=== PATIENT | male | born 1975 | race Caucasian/White ===

== ENCOUNTER → 2018-06-27 07:51 | Outpatient (CLI) | payer MEDICAID, SELFPAY | PROVIDERS: PCP Family Medicine; Visit Provider Orthopaedic Surgery | DX: S83.232A Complex tear of medial meniscus, current injury, left knee, initial encounter (principal); Z01.818 Encounter for other preprocedural examination ==

== ENCOUNTER 2018-07-07 08:05 | Emergency (ER) | payer MEDICAID, SELFPAY ==
[2018-07-07 08:10] VITALS: BP 151/95; PULSE 100; RESP 16; TEMP 36.7; O2SAT 99
--- NOTE | 2018-07-07 08:20 | DI.REPORT_ITS ---
SYMPTOM/DIAGNOSIS: POST OP PAIN AND SWELLING. LEFT KNEE: Comparison is made with 19 Mar 2018. There is anterior soft tissue swelling as well as a joint effusion. No foreign body is seen. An elongation of the inferior pole of the patella is again noted. IMPRESSION: Anterior soft tissue swelling and joint effusion.
--- NOTE | 2018-07-07 08:22 | ED.GENADUL_ITS ---
Disposition Clinical Impression: Left knee pain Disposition: HOME Condition: Good Instructions: Knee Pain (ED), RICE Therapy (ED) Additional Instructions: Please take Tylenol and Motrin as directed. Please do not take any Tylenol with your pain medication as this has some Tylenol in it. Please use ice multiple times throughout the day, please wrap it in an Stephen wrap as often as possible and follow-up at your scheduled appointment on July 15 at 11:40 AM. If you notice any worsening of your symptoms, or any new symptoms such as vomiting, diarrhea, fever, chills, shortness of breath, chest pain, numbness, weakness, or fainting , please return immediately to the emergency department for reevaluation. Please follow up with your primary care provider as soon as possible for reassessment and reevaluation. As always, it was a pleasure participating in your medical care today. Prescriptions: Acetaminophen [Tylenol Extra Strength] 1,000 mg PO Q6H 5 Days #60 tab Ibuprofen [Motrin Ib] 600 mg PO Q6H 5 Days #60 tablet Referrals: Ron Abbott MD [ [facility] STAFF PHYSICIAN] - Medical Decision Making - Medical Decision Making This is a pleasant 43-year-old male who presents for evaluation of left knee pain 4 days postoperatively. He had a meniscal trimming, performed by . Review of the postop note shows no significant complications with procedure. Patient tolerated it well. He has had swelling and pain since then, but no evidence of night sweats, fever, warmth. The patient has not been wrapping the knee, secondary to pain with wrapping, nor has he been taking any ibuprofen. He has taken his occasional opiate pain medication but has had some difficulty sleeping in spite of taking this. With no fever, redness, significant warmth, or other systemic signs of severe infection, I do feel that he is suffering from the normal postoperative swelling. No signs of a significant infectious etiology. We will get an x-ray to evaluate for any acute process, give Toradol, Tylenol, and encouraged close follow-up with his orthopedic surgeon. 9 AM X-ray shows no significant abnormality of the knee. There is notable soft tissue swelling but nothing else. Patient is feeling better after medications. We did contact the orthopedic office and he does have follow-up on July 15 at 11:40 AM. I feel that he can be safely discharged home with continued home NSAIDs, ice, and this close follow-up. We discussed red flags which to return including signs and symptoms of infection the patient understands. I have extensively reviewed the treatment plan and discharge instructions with the patient. I have addressed all patient concerns at this time. The patient was made aware of what symptoms to monitor for that would warrant a return to the emergency department. Discussed the plan with the patient, they demonstrate verbal understanding and agreement with our assessment and plan at this time. History of Present Illness - General Chief complaint: Orthopedic Stated complaint: KNEE PROBLEM Time Seen by Provider: 07/07/18 08:19 - History of Present Illness Initial comments: 33-year-old male with past medical history of questionable gout, previous left-sided femur fracture, lipoma, and recent surgery this past on his left knee for meniscal evaluation and potential trimming performed by Dr. Sahu. Review of records indicate that a posterior medial meniscectomy was performed, as well as a limited chondroplasty. No significant procedural complications. Patient states that since then he has had increased swelling and pain from the left knee. He denies any fevers, chills, redness. He does have notable pain with movement of the joint. He has been taking his occasional opiate anesthetic agent, with no significant improvement. He has not been taking any ibuprofen, he has not been icing it over the last 12 hours. Patient has continued to use his crutches. He does complaint of mild radiation of pain proximal to the knee with movement. He denies any other associated symptoms. Patient does admit to tobacco use. He denies any pertinent family history. He has no other complaints at this time. - Related Data Sumatriptan Succinate 100 mg PO BID #12 mg 03/03/13 Hydrocodone/Acetaminophen [Vicodin 5-300 mg Tablet] 1 each PO PRN 05/25/14 Magnesium Oxide [Magnesium] 500 mg PO DAILY NS 04/22/18 Topiramate [Topamax] 100 mg PO BID NS 04/22/18 Hydrocodone/Acetaminophen [[place] 5-325 Tablet] 1 each PO .Q4-6H PRN 07/04/18 Acetaminophen [Tylenol Extra Strength] 1,000 mg PO Q6H 5 Days #60 tab 07/07/18 Ibuprofen [Motrin Ib] 600 mg PO Q6H 5 Days #60 tablet 07/07/18 Allergies Allergy/AdvReac Type Severity Reaction Status Date / Time oxycodone [From Percocet] Allergy Intermediate Hives Unverified 07/07/18 08:26 Review of Systems Other: 10 point review of systems was performed, pertinent positives and negatives are noted in the history of present illness. General Exam - Other Other exam information: 1.Const: Well-nourished, Well-developed, appearing stated age 2.Eyes: PERRL, no conjunctival injection, and symmetrical lids. 3.ENT: Atraumatic external nose and ears. Moist MM. Neck: Symmetric, trachea midline, No thyromegaly. 4.CVS: +S1/S2, No murmurs or gallops. Peripheral pulses 2+ and equal in all extremities. Brisk capillary refill in all extremities. 5.RESP: Unlabored respiratory effort. Clear to auscultation bilaterally. Minimal wheeze, no rhonchi or rales. 6.GI: Soft, Nontender/Nondistended, No hepatosplenomegaly. No guarding or rebound. 7.MSK: Patient's left knee is mildly swollen, with minimal pitting edema. No evidence of erythema. Temperature is symmetric with the right knee. No significant warmth. Incision sites are clean dry and intact with no evidence of drainage or erythema. Patient is able to move the knee, but there is notable pain with movement. No significant crepitus. No calf tenderness, dorsalis pedis and posterior tibial pulses are +2 bilaterally with brisk capillary refill on the left and the right lower extremities. No significant tenderness on palpation of the proximal or distal thigh. 8.Skin: Warm, Dry. No rashes or lesions. Please see musculoskeletal 9.Neuro: supervisor slate splitting II-XII grossly intact. Sensation grossly intact, no focal neurologic deficits. 10.Psych: (AAO) x3. Appropriate mood and affect Course Vital Signs - 24 hr 07/07/18 08:10 Temperature 36.7 C Pulse 100 H Respiratory 16 Rate Blood Pressure 151/95 Pulse Oximetry 99
[2018-07-07] MEDS: Ketorolac 30 MG/ML VIAL IM (08:29)
[2018-07-07] MEDS: Acetaminophen 500 MG TAB 1000 MG PO (08:29)
[2018-07-07 09:15] VITALS: BP 132/92; PULSE 83; RESP 16; TEMP 36.8; O2SAT 98
== END 2018-07-07 09:23 | disposition home or self-care (01) ==
PROVIDERS: Emergency Provider Student in an Organized Health Care Education/Training Program; PCP Family Medicine
DX: M25.562 Pain in left knee (principal); G89.18 Other acute postprocedural pain; Y84.8 Other medical procedures as the cause of abnormal reaction of the patient, or of later complication, without mention of misadventure at the time of the procedure
CPT/HCPCS: 73562; 96372; 99284; J1885

== ENCOUNTER 2018-11-16 10:22 | Emergency (ER) | payer MEDICAID, SELFPAY ==
[2018-11-16 10:30] VITALS: BP 143/100; PULSE 76; RESP 17; TEMP 37.8; O2SAT 99
[2018-11-16] MEDS: Lidocaine 5% Patch 1 PATCH TP (10:49)
--- NOTE | 2018-11-16 10:54 | ED.GENADUL_ITS ---
Discharge Plan Disposition Patient Disposition: HOME Condition: Stable Discharge Details Chief Complaint: Nk/Back Pain Clinical Impression: Muscle strain of anterior chest wall, Muscle strain of right shoulder Primary Care Provider: Nelli Allen V ED Provider: Santiago Carmona Home Meds and New Rx's Prescriptions: New cyclobenzaprine 10 mg tablet 10 mg PO TID PRN (Reason: muscle spasm) Qty: 14 RF: 0 diclofenac potassium 50 mg tablet 50 mg PO TID PRN (Reason: pain) Qty: 14 RF: 0 No Action hydrocodone-acetaminophen [Vicodin] 1 EACH tablet 1 ea PO PRN RF: 0 Discharge Instructions Instructions: Muscle Strain (ED) Additional Instructions: Return to the emergency department for any new or significant worsening of symptoms otherwise take medication as prescribed and slowly advance activity as tolerated by pain. If not improving over the next week follow-up with primary care provider for reassessment Referrals: Nelli Allen MD [Primary Care Provider] - (as needed for reassessment) Discharge Data Discharge Date/Time-TO BE ENTERED AT DEPARTURE: 11/16/18 12:21 Medical Decision Making Patient reports approximately 1 weeks ago he was working on an automobile when trying to get a bolt to break free the breaker bar loosened causing a significant jarring to the right side of his chest and shoulder. He states since then he has had significant right-sided chest pain that worsens with movement of the arm, or lying on that side. Patient also does state pain with deep inspiration along with some subjective chills.. Physical exam shows chest wall/pectoral tenderness to the right side of the chest along with some tenderness to the posterior scapula. Breath sounds are clear throughout with some slight diminished breath sounds in the right lower lobe but still air movement is auscultated. Plan to perform radiological imaging of the right ribs and chest. Patient offered Toradol and lidocaine but declined Toradol at this time but was agreeable to receiving lidocaine patch Review of radiological imaging shows no acute findings within the lungs and no acute findings within the ribs. Patient was reassessed and stated minimal improvement from lidocaine continued to state he would prefer not to have Toradol at this time. Patient prescribed diclofenac and Flexeril for concern of muscle strain and chest wall strain and encouraged to return for new or worsening symptoms otherwise to follow-up with primary care provider as needed for reassessment. Patient was encouraged to slowly advance activity as tolerated by discomfort. After discussion of diagnosis and plan of care patient has no further needs, questions, or concerns and states clear understanding to return to the emergency department for any worsening symptoms. HPI General Mode of arrival: ambulatory . Date/Time Provider Initiated Documentation: 11/16/18 10:44 . Limitations to Documentation: no limitations . Information obtained by: patient and RN notes reviewed . History of Present Illness 43 year old M presents to the emergency department with the chief complaint of Right-sided pain, described as moderate, with intensity rated at 8. Quality is described as sharp, and is localized to the chest. Patient reports radiation to back. Patient started experiencing this day(s) (7) and it has been constant. No relieving factors improve symptom(s), Other factors that worsen symptoms (Deep breaths or lying on right side) . Patient notes no other symptoms.. Patient did receive the following treatments prior to arrival, none Related Data Home Medications Medication Instructions Recorded Confirmed hydrocodone-acetaminophen [Vicodin] 1 ea PO PRN 05/25/14 11/16/18 cyclobenzaprine 10 mg PO TID PRN #14 tab 11/16/18 diclofenac potassium 50 mg PO TID PRN #14 tab 11/16/18 Previous Rx's Medication Instructions Recorded cyclobenzaprine 10 mg PO TID PRN #14 tab 11/16/18 diclofenac potassium 50 mg PO TID PRN #14 tab 11/16/18 Allergies Allergy/AdvReac Type Severity Reaction Status Date / Time oxycodone [From Percocet] Allergy Intermediate Hives Unverified 07/07/18 08:26 General Stated Complaint: Nk/Back Pain VANDANA: 4 Review of Systems Constitutional Reports chills, Denies fever(s) and Denies malaise ENT Denies nasal congestion and Denies sore throat Cardiovascular Reports as per HPI, Reports chest pain (Right-sided), Reports chest pain with activity, Denies irregular heart rhythm, Denies palpitations and Denies dyspnea Respiratory Denies chest congestion, Denies cough, Reports pain on inspiration and Denies dyspnea Gastrointestinal Denies abdominal pain, Denies nausea and Denies vomiting Endocrine Denies palpitations PFSH Social History Smoking/Tobacco Use Status: Current every day Exam Const General: cooperative, healthy appearing, comfortable, no acute distress, not diaphoretic and not ill appearing Nutritional Appearance: average body habitus Orientation: alert, awake and oriented x3 Limitations: mental status not altered Neck Neck: normal visual inspection, full ROM, trachea midline, supple and no anterior neck swelling Thyroid: thyroid normal Carotids: normal carotid upstroke and no bruits Chest Chest: normal inspection of the chest, tenderness pectoral muscle on the right; no sternal xxx and No rash Resp Effort & Inspection: normal respiratory effort and able to speak in complete sentences Auscultation: clear to auscultation bilaterally and diminished lung sounds on the right in the lower lung james Cardio Jugular venous pressure: no JVD Palpation: normal PMI Rate: regular rate Rhythm: regular rhythm Heart Sounds: S1 normal, S2 normal, no click, no gallops, no murmurs and no rubs Bruits: no abdominal aortic bruits and no carotid bruits Pulses: radial pulses present bilaterally 2+ Skin General skin exam: no rashes or lesions noted Neuro General: alert, awake, oriented x3, tone normal and moves all extremities Extrem Right upper extremity: normal capillary refill, no joint enlargement, shoulder/upper arm Details: tenderness Location: of the proximal humerus and of the scapula, axillary nerve sensory function normal and abnormal ROM Details: pain with active ROM Details: in ADduction and in extension; no ecchymosis, no crepitus and no deformity and elbow/forearm Details: normal to inspection and normal ROM; no tenderness and no swelling Course Vital Signs Temperature 37.8 C H 11/16/18 10:30 Pulse 76 11/16/18 10:30 Respiratory Rate 17 11/16/18 10:30 Blood Pressure 143/100 H 11/16/18 10:30 Pulse Oximetry 99 11/16/18 10:30 Temperature 37.8 C H 11/16/18 10:30 Temperature Source Skin 11/16/18 10:30 Pulse 76 11/16/18 10:30 Respiratory Rate 17 11/16/18 10:30 Respiratory Effort Non-Labored 11/16/18 10:51 Blood Pressure 143/100 H 11/16/18 10:30 Pulse Oximetry 99 11/16/18 10:30 Oxygen Delivery Method Room Air 11/16/18 10:30 Oxygen Flow Rate 0 11/16/18 10:30 Pain Level 8 11/16/18 10:30
--- NOTE | 2018-11-16 11:06 | DI.RAD_ITS ---
SYMPTOM/DIAGNOSIS: RT SIDED CHEST PAIN RIGHT RIBS AND PA AND LATERAL CHEST: The heart size is normal. The lungs are clear. No pneumothorax is seen. No rib fracture is identified. The spine appears intact. IMPRESSION: Negative chest and right ribs.
--- NOTE | 2018-11-16 11:22 | DI.VRAD_ITS ---
EXAM: XR Right Ribs, 2 Views EXAM DATE/TIME: 11/16/2018 10:45 AM CLINICAL HISTORY: 43 years old, male; Pain; Other: Rib pain; Painful respiration; Patient HX: Right sided chest pain TECHNIQUE: XR Right ribs 2 views. COMPARISON: CR RIGHT RIBS TO INCLUDE CXR 06/10/2012 11:05 AM FINDINGS: Bones/joints: Normal. Soft tissues: Normal. IMPRESSION: No acute findings. EXAM: XR Chest, 2 Views EXAM DATE/TIME: 11/16/2018 10:45 AM CLINICAL HISTORY: 43 years old, male; Pain; Other: Rib pain; Painful respiration; Patient HX: Right sided chest pain TECHNIQUE: XR of the chest, 2 views. COMPARISON: CR RIGHT RIBS TO INCLUDE CXR 06/10/2012 11:05 AM FINDINGS: Lungs: Moderately hyperaerated lungs consistent with deep inspiratory effort vs significant reactive airway disease vs moderate COPD . Pleural space: Unremarkable. No pleural effusion. No pneumothorax. Heart/Mediastinum: Unremarkable. No cardiomegaly. Bones/joints: Unremarkable. IMPRESSION: Moderately hyperaerated lungs consistent with deep inspiratory effort vs significant reactive airway disease vs moderate COPD . Dictated and Authenticated by: Bert Menon MD. Ordering:KIRTI Henderson MD
[2018-11-16 12:19] VITALS: BP 137/98; PULSE 74; RESP 14; TEMP 37; O2SAT 98
== END 2018-11-16 12:21 | disposition home or self-care (01) ==
PROVIDERS: Emergency Provider Nurse Practitioner Family; PCP Family Medicine
DX: S29.011A Strain of muscle and tendon of front wall of thorax, initial encounter (principal); S46.911A Strain of unspecified muscle, fascia and tendon at shoulder and upper arm level, right arm, initial encounter; W22.8XXA Striking against or struck by other objects, initial encounter
CPT/HCPCS: 99284; 71046; 71100

== ENCOUNTER 2018-12-12 10:35 | Outpatient (REF) | payer MEDICAID, SELFPAY ==
[2018-12-17 14:53] LABS: Codeine Negative ng/mL (Cutoff: 25); Dihydrocodeine Negative ng/mL (Cutoff: 25); Hydrocodone Negative ng/mL (Cutoff: 25); Hydromorphone Negative ng/mL (Cutoff: 25); Morphine Negative ng/mL (Cutoff: 25); Naloxone Negative ng/mL (Cutoff: 25); Norhydrocodone 89 ng/mL (Cutoff: 25); Noroxycodone Negative ng/mL (Cutoff: 25); Noroxymorphone Negative ng/mL (Cutoff: 25); Opiates Interpretation Positive.
== END 2018-12-12 10:55 ==
LOC: NCHCN 10:35
PROVIDERS: PCP Family Medicine; Visit Provider Family Medicine
DX: F11.20 Opioid dependence, uncomplicated (principal); Z51.81 Encounter for therapeutic drug level monitoring
CPT/HCPCS: 80053; 80361; 85027; 86704; 86709; 86803; 87340; 84443; 86140

== ENCOUNTER 2019-02-27 11:14 | Outpatient (REF) | payer MEDICAID, SELFPAY ==
[2019-02-27 21:09] LABS: Anion Gap 8.8 mmol/L (3-11); BUN 16 mg/dL (7-18); CO2 26.2 mmol/L (21.0-32.0); CREATININE 0.85 mg/dL (0.70-1.30); Calcium 9.2 mg/dL (8.5-10.1); Chloride 103 mmol/L (98-107); Glucose 99 mg/dL (70-100); Magnesium 1.9 mg/dL (1.8-2.4); Potassium 4.5 mmol/L (3.5-5.1); Sodium 138 mmol/L (136-145); TSH (W/Ref FT4) 1.05 uIU/mL (0.358-3.74); Vitamin B12 693 pg/mL (193-986)
== END 2019-02-27 11:34 ==
LOC: NCHCN 11:14
PROVIDERS: PCP Family Medicine; Visit Provider Family Medicine
DX: R20.2 Paresthesia of skin (principal)
CPT/HCPCS: 80048; 82607; 83735; 84443

== ENCOUNTER 2019-05-06 07:21 | Emergency (ER) | payer MEDICAID, SELFPAY ==
--- NOTE | 2019-05-06 07:27 | NUR.NOTE ---
Nursing Note: pt states that 2 days ago her was splitting firewood the next morning he awoke with significant upper back pain as well as sternal pain
[2019-05-06 07:28] VITALS: BP 158/99; PULSE 89; RESP 15; TEMP 37.1; O2SAT 98
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
--- NOTE | 2019-05-06 07:34 | DI.RAD_ITS ---
SYMPTOM/DIAGNOSIS: CHEST AND UPPER BACK PAIN PA AND LATERAL CHEST: The heart is normal in size. The lungs are clear. The mediastinal structures and pleura appear intact. CONCLUSION: Normal chest. No evidence of acute cardiopulmonary disease.
[2019-05-06] MEDS: Aspirin 81 MG CHEW 324 MG CH (07:35)
[2019-05-06 07:42] LABS: Abs Immature Grans 0.02 k/cumm (0.0-0.09); Absolute Basophil Count 0.03 k/cumm (0.0-0.2); Absolute Eosinophil Count 0.35 k/cumm (0.0-0.7); Absolute Lymphocyte Count 2.96 k/cumm (1.2-3.4); Absolute Monocyte Count 0.77 k/cumm (0.11-0.7); Absolute Neutrophil Count 6.32 k/cumm (1.2-6.7); Basophils % 0.3; Eosinophils % 3.3; HCT 48.5 % (40.0-50.0); Immature Grans % 0.2; Lymphocytes % 28.3; Mean Corp. HGB Concentration 35.1 g/dL (32.0-36.0); Mean Corpuscular Hemoglobin 30.8 pg (27.0-33.0); Mean Corpuscular Volume 87.9 fL (80-95); Mean Platelet Volume 9.6 fL (8.0-11.0); Monocytes % 7.4; Neutrophils % 60.5; Platelet Count 274 x1000/uL (130-400); RBC 5.52 m/cumm (4.50-6.00); RBC Distribution Width 12.9 % (11.8-14.1); White Blood Cell Count 10.45 k/cumm (4.4-10.8)
[2019-05-06 07:56] LABS: PTT Activated 25.7 sec (21.0-31.4)
--- NOTE | 2019-05-06 08:00 | DI.VRAD_ITS ---
EXAM: XR Chest, 2 Views EXAM DATE/TIME: 05/06/2019 7:35 AM CLINICAL HISTORY: 44 years old, male; Pain and injury or trauma; Injury history: Pulling injury; Initial encounter; Sprain or strain; Chest wall pain TECHNIQUE: Imaging protocol: XR of the chest, 2 views. COMPARISON: CR XR ribs RT w PA lat chest 11/16/2018 10:56 AM FINDINGS: Lungs: Unremarkable. No consolidation. Pleural space: Unremarkable. No evidence of pneumothorax. Heart/Mediastinum: Unremarkable. Heart size within normal limits for technique. Bones/joints: Unremarkable. IMPRESSION: No acute findings. Dictated and Authenticated by: Andreas Martínez MD. Ordering:BETHANY Noel MD
[2019-05-06 08:01] LABS: ALT 25 U/L (12-78); AST 16 U/L (15-37); Alkaline Phosphatase 100 U/L (46-116); Anion Gap 9.7 mmol/L (3-11); BUN 8 mg/dL (7-18); Bilirubin, Total 0.4 mg/dL (0.2-1.0); CO2 26.3 mmol/L (21.0-32.0); CREATININE 0.85 mg/dL (0.70-1.30); Calcium 9.3 mg/dL (8.5-10.1); Chloride 104 mmol/L (98-107); Glucose 126 mg/dL (70-100); Magnesium 1.8 mg/dL (1.8-2.4); Potassium 4.3 mmol/L (3.5-5.1); Sodium 140 mmol/L (136-145); Total Protein 7.4 g/dL (6.4-8.2)
[2019-05-06 08:03] LABS: Troponin I < 0.02 ng/mL (0.00-0.06)
[2019-05-06 08:11] LABS: D-Dimer 485 ng/mlFEU (<500)
[2019-05-06] MEDS: Lidocaine 5% Patch 1 PATCH (08:45)
[2019-05-06 09:27] VITALS: BP 158/99; PULSE 89; RESP 15; TEMP 37.1; O2SAT 98
== END 2019-05-06 09:26 | disposition home or self-care (01) ==
PROVIDERS: Emergency Medicine; Emergency Provider Physician Assistant; PCP Family Medicine
DX: M54.6 Pain in thoracic spine (principal); G89.29 Other chronic pain; S29.011A Strain of muscle and tendon of front wall of thorax, initial encounter; W50.3XXA Accidental bite by another person, initial encounter
CPT/HCPCS: 36415; 80053; 93005; 99284; 71046; 83735; 84484; 85025; 85379; 85610; 85730; 93010; J3490

== ENCOUNTER 2019-05-20 09:39 | Outpatient (CLI) | payer MEDICAID, SELFPAY ==
--- NOTE | 2019-05-20 11:30 | DI.RAD_ITS ---
SYMPTOMS/DIAGNOSIS: PARESTHESIA HANDS, R20.2, PARASPINAL LT BACK PAIN, M54.9 CERVICAL SPINE: The vertebral bodies are intact. There is subtle narrowing of the C 6 - 7 disc interspace. The neural canal and neural foramen are widely patent. The posterior elements appear intact. The odontoid is intact and is closely applied to the anterior arch of C 1. The prevertebral soft tissues appear normal. SUMMARY: The examination is unremarkable as for mild narrowing of the C 6 - 7 disc interspace. THORACIC SPINE: The vertebral bodies and disc spaces are intact. The posterior elements are well maintained. The paravertebral soft tissues appear unremarkable. SUMMARY: Normal thoracic spine.
== END 2019-05-20 09:59 ==
PROVIDERS: PCP Family Medicine; Visit Provider Family Medicine
DX: R20.2 Paresthesia of skin (principal); M54.2 Cervicalgia; M54.6 Pain in thoracic spine; M50.323 Other cervical disc degeneration at C6-C7 level
CPT/HCPCS: 72050; 72072

== ENCOUNTER 2021-05-23 16:27 | Outpatient (REF) | payer MEDICAID, SELFPAY ==
[2021-05-28 14:25] LABS: Codeine Negative ng/mL (Cutoff: 25); Dihydrocodeine Negative ng/mL (Cutoff: 25); Hydrocodone 177 ng/mL (Cutoff: 25); Hydromorphone 27 ng/mL (Cutoff: 25); Morphine Negative ng/mL (Cutoff: 25); Naloxone Negative ng/mL (Cutoff: 25); Norhydrocodone 166 ng/mL (Cutoff: 25); Noroxycodone Negative ng/mL (Cutoff: 25); Noroxymorphone Negative ng/mL (Cutoff: 25); Opiates Interpretation Positive.
[2021-06-02 13:00] LABS: Acetaminophen, Urine 8.8 ug/ml
== END 2021-05-23 16:28 | disposition home or self-care (01) ==
LOC: NCHCN 16:27
PROVIDERS: PCP Family Medicine; Visit Provider Family Medicine
DX: Z51.81 Encounter for therapeutic drug level monitoring (principal)
CPT/HCPCS: 80307; 80361; 80362; 80365

== ENCOUNTER 2021-06-05 10:41 | Inpatient (IN) | payer MEDICAID, SELFPAY ==
[2021-06-05] VITALS (16 sets, daily range): BP systolic 116–144; BP diastolic 75–88; PULSE 80–107; RESP 14–20; TEMP 36.4–37.2; O2SAT 96–99
--- NOTE | 2021-06-05 11:06 | DI.CT_ITS ---
Exam(s) CT ABDOMEN PELVIS W EXAM: CT ABDOMEN PELVIS W CLINICAL HISTORY: RLQ pain. TECHNIQUE: Imaging Protocol: Axial computed tomography images with coronal and sagittal reformatted images were created and reviewed CONTRAST MATERIAL: Intravenous: Omnipaque 100cc Oral: None COMPARISON: No exams were available for comparison FINDINGS: VISUALIZED LUNG BASES: No nodules nor pleural effusions evident. ABDOMEN: There is no ascites. LIVER: There are no focal hepatic lesions evident. Fluid is seen in the right paracolic gutter subja cent to the liver. GALLBLADDER/BILIARY: No obvious gallbladder pathology. CBD is not dilated. PANCREAS: No evidence of pancreatic mass nor dilatation of the pancreatic duct. SPLEEN: Spleen is not enlarged. No obvious intrasplenic lesions. Splenic and portal veins are paten t. ADRENALS: There are no significant adrenal masses. KIDNEYS:No cysts evident. No solid renal masses. No calculi nor hydronephrosis.. ABDOMINAL AORTA: Abdominal aorta is not enlarged. LYMPH NODES:There is no retroperitineal nor paraaortic adenopathy. ABDOMINAL WALL: No evidence of significant anterior abdominal wall hernia. GI: There is significant abnormality in the right iliac fossa with free fluid in this area and diffic ult to delineate the ileocecal valve. Findings are suspicious for appendicitis with rupture. PELVIS: GI: As above.No evidence of sigmoid diverticulitis. LYMPH NODES: There is no intrapelvic nor inguinal adenopathy. REPRODUCTIVE: Prostate size normal URINARY BLADDER: No calculi nor obvious masses evident OSSEOUS: There is inter previous probable intramedullary lonny in the left femur. No significant osseo us lesions evident. IMPRESSION: 1. Findings are suspicious for acute appendicitis with rupture. High risk for developing an abscess. RADIATION DOSE DELIVERED: 567.17mGy.cm Total DLP DATA REPOSITORY: All CT scans at this facility are submitted to the National Radiology Data Registry (NRDR) Dose Index Registry (DIR) with the [employer] ([employer]). RADIATION OPTIMIZATION: All CT scans at this facility use at least one of these dose optimization te chniques: automated exposure control; mA and/or kV adjustment per patient size (includes targeted exa ms where dose is matched to clinical indication); or iterative reconstruction.
[2021-06-05] MEDS: Normal Saline 1,000 ML 1000 ML IV ×2 (11:21→12:15)
[2021-06-05 11:29] LABS: Abs Immature Grans 0.06 10^3/uL (0.0-0.06); Absolute Basophil Count 0.09 10^3/uL (0.0-0.2); Absolute Eosinophil Count 0.04 10^3/uL (0.0-0.7); Absolute Monocyte Count 1.53 10^3/uL (0.1-0.8); Absolute Neutrophil Count 14.11 10^3/uL (1.2-6.7); Basophils % 0.5; Eosinophils % 0.2; HCT 46.3 % (40.0-50.0); Immature Grans % 0.3; Lymphocytes % 13.1; MCH 30.3 pg (27.0-33.0); MCHC 34.6 % (32.0-36.0); MCV 87.7 fL (80-95); MPV 9.1 fL (8.0-11.0); Monocytes % 8.4; Neutrophils % 77.5; Nucleated RBC 0 %; Platelet Count 255 10^3/uL (130-400); RBC 5.28 10^6/uL (4.36-5.78); RDW 12.4 % (11.8-14.1); RDW-SD 40.1 fL; WBC 18.21 10^3/uL (4.4-10.8)
[2021-06-05 11:32] LABS: Absolute Lymphocyte Count 2.39 10^3/uL (1.2-3.4)
[2021-06-05 11:43] LABS: ALT 20 U/L (16-63); AST 10 U/L (15-37); Albumin 3.8 g/dL (3.4-5.0); Alkaline Phosphatase 107 U/L (46-116); Anion Gap 10.3 mmol/L (3-11); BUN 15 mg/dL (7-18); Bilirubin, Total 0.8 mg/dL (0.2-1.0); CO2 24.7 mmol/L (21.0-32.0); CREATININE 0.9 mg/dL (0.70-1.30); Calcium 9.1 mg/dL (8.5-10.1); Chloride 101 mmol/L (98-107); Glucose 114 mg/dL (74-106); Lipase 19 U/L (73-393); Potassium 3.9 mmol/L (3.5-5.1); Sodium 136 mmol/L (136-145); Total Protein 7.4 g/dL (6.4-8.2)
[2021-06-05] MEDS: Omnipaque 350 MG/ML 100 ML BTL IJ (11:48)
[2021-06-05 11:49] LABS: Diff Comment Diff Reviewed; RBC Morphology Normal
[2021-06-05] MEDS: Normal Saline Flush 10 ML SYR IVP ×2 (11:49→15:07)
[2021-06-05] MEDS: Normal Saline - Diluent 50 ML VIAL IV (11:49)
[2021-06-05] MEDS: HYDROmorphone 2 MG/ML VIAL 1 MG IVP (12:15)
--- NOTE | 2021-06-05 12:28 | W.ED.GENAD ---
Discharge Plan Discharge Details Chief Complaint: Abd Prob Admit Date/Time: 06/05/21 13:26 Admit Provider: Dana Jurado Attending Provider: Dana Jurado Primary Care Provider: Nelli Allen V ED Provider: Radha Maguire Medical Decision Making Silvano Juarez is a 46-year-old man without reported history of major medical problems who presented to the emergency department with right lower quadrant pain since yesterday morning. On exam patient appears uncomfortable but nontoxic. There is focal tenderness to palpation in the right lower quadrant with peritoneal signs. Concern for appendicitis, diverticulitis, other. Exam/history at this time is not consistent with sepsis, mesenteric ischemia, acute aortic pathology, acute coronary syndrome. Plan for IV placement, IV pain medication, screening labs, UA, CT abdomen/pelvis. Will monitor and reassess. Labs reviewed, leukocytosis of [address] abdomen/pelvis shows significant abnormality in the right lower quadrant, consistent with likely ruptured appendix. Plan for Zosyn. I contacted surgery, who will be down to see patient bedside. Patient to be admitted to Dr. Jurado of surgery. Medical Records Medical records reviewed: Yes I reviewed the patient's medical records. Imaging Data Radiologic Study: Attestation: I personally reviewed and interpreted this imaging study as follows: Radiologist's impression: EXAM: CT ABDOMEN PELVIS W CLINICAL HISTORY: RLQ pain. TECHNIQUE: Imaging Protocol: Axial computed tomography images with coronal and sagittal reformatted images were created and reviewed CONTRAST MATERIAL: Intravenous: Omnipaque 100cc Oral: None COMPARISON: No exams were available for comparison FINDINGS: VISUALIZED LUNG BASES: No nodules nor pleural effusions evident. ABDOMEN: There is no ascites. LIVER: There are no focal hepatic lesions evident. Fluid is seen in the right paracolic gutter subjacent to the liver. GALLBLADDER/BILIARY: No obvious gallbladder pathology. CBD is not dilated. PANCREAS: No evidence of pancreatic mass nor dilatation of the pancreatic duct. SPLEEN: Spleen is not enlarged. No obvious intrasplenic lesions. Splenic and portal veins are patent. ADRENALS: There are no significant adrenal masses. KIDNEYS:No cysts evident. No solid renal masses. No calculi nor hydronephrosis.. ABDOMINAL AORTA: Abdominal aorta is not enlarged. LYMPH NODES:There is no retroperitineal nor paraaortic adenopathy. ABDOMINAL WALL: No evidence of significant anterior abdominal wall hernia. GI: There is significant abnormality in the right iliac fossa with free fluid in this area and difficult to delineate the ileocecal valve. Findings are suspicious for appendicitis with rupture. PELVIS: GI: As above.No evidence of sigmoid diverticulitis. LYMPH NODES: There is no intrapelvic nor inguinal adenopathy. REPRODUCTIVE: Prostate size normal URINARY BLADDER: No calculi nor obvious masses evident OSSEOUS: There is inter previous probable intramedullary lonny in the left femur. No significant osseous lesions evident. IMPRESSION: 1. Findings are suspicious for acute appendicitis with rupture. High risk for developing an abscess. Lab Data Lab results reviewed: Yes I reviewed the patient's lab results. Labs: Laboratory Tests Range/Units 06/05/21 06/05/21 06/05/21 11:15 11:15 12:35 WBC (4.4-10.8) 10^3/uL 18.21 H RBC (4.36-5.78) 10^6/uL 5.28 Hgb (13.5-17.5) g/dL 16.0 Hct (40.0-50.0) % 46.3 MCV (80-95) fL 87.7 MCH (27.0-33.0) pg 30.3 MCHC (32.0-36.0) % 34.6 RDW (11.8-14.1) % 12.4 Plt Count (130-400) 10^3/uL 255 MPV (8.0-11.0) fL 9.1 Immature Gran % 0.3 Neutrophils % 77.5 Lymphocytes % 13.1 Monocytes % 8.4 Eosinophils % 0.2 Basophils % 0.5 Nucleated RBC % % 0 Absolute Neutrophils (1.2-6.7) 10^3/uL 14.11 H Absolute Lymphocytes (1.2-3.4) 10^3/uL 2.39 Absolute Monocytes (0.1-0.8) 10^3/uL 1.53 H Absolute Eosinophils (0.0-0.7) 10^3/uL 0.04 Absolute Basophils (0.0-0.2) 10^3/uL 0.09 RBC Morphology Normal Sodium (136-145) mmol/L 136 Potassium (3.5-5.1) mmol/L 3.9 Chloride (98-107) mmol/L 101 Carbon Dioxide (21.0-32.0) mmol/L 24.7 Anion Gap (3-11) mmol/L 10.3 BUN (7-18) mg/dL 15 Creatinine (0.70-1.30) mg/dL 0.9 Estimated GFR/1.73 m2 (mL/min/1.73m2) >= 60.00 Glucose (74-106) mg/dL 114 H Calcium (8.5-10.1) mg/dL 9.1 Total Bilirubin (0.2-1.0) mg/dL 0.8 AST (15-37) U/L 10 L ALT (16-63) U/L 20 Alkaline Phosphatase (46-116) U/L 107 Total Protein (6.4-8.2) g/dL 7.4 Albumin (3.4-5.0) g/dL 3.8 Lipase (73-393) U/L 19 Urine Color (Yellow) Yellow Urine Clarity (Clear) Clear Urine pH (5-8) 7.0 Ur Specific [place] (1.005-1.025) 1.010 Urine Protein (Negative) mg/dL Negative Urine Ketones (Negative) mg/dL Negative Urine Blood (Negative) Trace-intact H Urine Nitrite (Negative) Negative Urine Bilirubin (Negative) Negative Urine Urobilinogen (Up TO 0.2) EU/dL 1.0 H Ur Leukocyte Esterase (Negative) Negative Urine RBC (0-2) HPF 0-2 Urine WBC (0-5) HPF Negative Ur Epithelial Cells (Negative) HPF Negative Urine Crystals (Negative) HPF Negative Urine Bacteria (Negative) HPF Negative Urine Casts (Negative) LPF Negative Urine Mucus (Negative) Negative Ur Culture Indicated? No Urine Glucose (Negative) mg/dL Negative HPI General Mode of arrival: ambulatory. Date/Time Provider Initiated Documentation: 06/05/21 10:45. Limitations to Documentation: no limitations. Information obtained by: patient, RN notes reviewed and old records reviewed. HPI Narrative: Silvano Juarez is a 46 y/o man without reported major medical problems presenting to the emergency department with right lower quadrant pain since yesterday morning. Patient reports that yesterday morning he woke up with pain in his right lower quadrant. He states that later in the day he developed nonbloody vomiting, nonbloody diarrhea. Patient reports that he has had no further diarrhea or vomiting today, but right lower quadrant pain has continued to become more severe. He reports that he has not eaten anything since onset of pain yesterday morning. He denies any history of similar pain. No abdominal surgery in the past. Patient reports that prior to onset of pain yesterday morning he was in his usual state of health, no prior symptoms, no known inciting event, no trauma. He denies any other pain including testicular pain, fever, cough, shortness of breath, numbness, weakness, rash, dysuria. Related Data Home Medications Medication Instructions Recorded Confirmed hydrocodone-acetaminophen [Vicodin] 1 ea PO PRN 05/25/14 06/05/21 lidocaine [Lidoderm] 1 patch TP DAILY PRN #15 each 05/06/19 06/05/21 methocarbamol 750 mg PO QID PRN #10 tab 05/06/19 06/05/21 indomethacin 50 mg capsule 50 mg PO TID 01/25/20 06/05/21 Previous Rx's Medication Instructions Recorded lidocaine [Lidoderm] 1 patch TP DAILY PRN #15 each 05/06/19 methocarbamol 750 mg PO QID PRN #10 tab 05/06/19 Allergies Allergy/AdvReac Type Severity Reaction Status Date / Time oxycodone [From Percocet] Allergy Intermediate Hives Unverified 06/05/21 10:52 gabapentin [From Neurontin] Allergy Mild Verified 06/05/21 10:52 General Stated Complaint: Abd Prob VANDANA: 3 Review of Systems Narrative: Constitutional: denies fevers Eyes: denies eye pain ENT: denies ear pain, dental pain, sore throat Cardiovascular: denies chest pain Respiratory: denies SOB, cough GI: Reports abdominal pain, vomiting, diarrhea : denies flank pain, dysuria, testicular pain MSK: denies back pain, neck pain, reports chronic unchanged joint pain Skin: denies rash Neuro: denies headaches, numbness, weakness [facility] Medical History (Updated 06/05/21 @ 14:10 by Dana Jurado DO) Carpal tunnel syndrome Cervicalgia Cluster headache Diaphoresis Headache, post-traumatic Knee pain Left paraspinal back pain Lumbar radiculopathy Medication monitoring encounter Oral lesion Paresthesia of both hands Shoulder pain, bilateral Situational anxiety Skin lesion Smoker Subacromial bursitis Ulnar nerve disease Social History Smoking/Tobacco Use Status: Current every day Tobacco Type: cigarettes Smoking risk assessment performed?: Yes Alcohol Intake: never Drug use: Daily Substance use type: marijuana Seatbelt use: always Do you feel safe at home: Yes Do you feel safe in your relationship?: Yes Exam Narrative Exam Narrative: Constitutional: Uncomfortable uncomfortable but [id number], pleasant, conversing normally HENT: head atraumatic/normocephalic/normal inspection, mucous membranes moist Eyes: conjunctiva normal, sclera normal, pupils 3mm b/l Neck: no stridor, normal ROM, trachea midline Chest: normal inspection Resp: normal work of breathing, speaking in full sentences Cardio: normal rate, normal rhythm GI: abdomen soft, right lower quadrant tender to palpation with positive rebound, positive guarding, non-distended Skin: warm, dry, normal color, no rash Neuro: alert, not altered, grossly non-focal, normal tone Ext: no edema, no posterior calf tenderness to palpation Psych: normal mood, normal affect, normal behavior Course Vital Signs Vital signs: Vital Signs Temperature 37.2 C 06/05/21 10:48 Pulse 107 H 06/05/21 10:48 Respiratory Rate 14 06/05/21 10:48 Blood Pressure 136/78 06/05/21 10:48 Pulse Oximetry 97 06/05/21 10:48 Temperature 37.2 C 06/05/21 12:19 Temperature Source Skin 06/05/21 12:19 Pulse 92 H 06/05/21 12:19 Respiratory Rate 14 06/05/21 10:48 Respiratory Effort 06/05/21 10:52 Blood Pressure 140/86 06/05/21 12:19 Blood Pressure Position Sitting 06/05/21 10:48 Pulse Oximetry 97 06/05/21 12:19 Oxygen Delivery Method Room Air 06/05/21 12:19 Oxygen Flow Rate 0 06/05/21 12:19 Pain Level 7 06/05/21 12:19 Lab/Test Results Lab/Test Results: Laboratory Tests Range/Units 06/05/21 06/05/21 11:15 11:15 WBC (4.4-10.8) 10^3/uL 18.21 H RBC (4.36-5.78) 10^6/uL 5.28 Hgb (13.5-17.5) g/dL 16.0 Hct (40.0-50.0) % 46.3 MCV (80-95) fL 87.7 MCH (27.0-33.0) pg 30.3 MCHC (32.0-36.0) % 34.6 RDW (11.8-14.1) % 12.4 Plt Count (130-400) 10^3/uL 255 MPV (8.0-11.0) fL 9.1 Immature Gran % 0.3 Neutrophils % 77.5 Lymphocytes % 13.1 Monocytes % 8.4 Eosinophils % 0.2 Basophils % 0.5 Nucleated RBC % % 0 Absolute Neutrophils (1.2-6.7) 10^3/uL 14.11 H Absolute Lymphocytes (1.2-3.4) 10^3/uL 2.39 Absolute Monocytes (0.1-0.8) 10^3/uL 1.53 H Absolute Eosinophils (0.0-0.7) 10^3/uL 0.04 Absolute Basophils (0.0-0.2) 10^3/uL 0.09 RBC Morphology Normal Sodium (136-145) mmol/L 136 Potassium (3.5-5.1) mmol/L 3.9 Chloride (98-107) mmol/L 101 Carbon Dioxide (21.0-32.0) mmol/L 24.7 Anion Gap (3-11) mmol/L 10.3 BUN (7-18) mg/dL 15 Creatinine (0.70-1.30) mg/dL 0.9 Estimated GFR/1.73 m2 (mL/min/1.73m2) >= 60.00 Glucose (74-106) mg/dL 114 H Calcium (8.5-10.1) mg/dL 9.1 Total Bilirubin (0.2-1.0) mg/dL 0.8 AST (15-37) U/L 10 L ALT (16-63) U/L 20 Alkaline Phosphatase (46-116) U/L 107 Total Protein (6.4-8.2) g/dL 7.4 Albumin (3.4-5.0) g/dL 3.8 Lipase (73-393) U/L 19
--- NOTE | 2021-06-05 12:37 | HPE_ITS ---
Date of service: 06/05/21 Time of Service: 14:03 Assessment and Plan Assessment and plan (1) Acute appendicitis with rupture: Status: Acute Assessment and plan: Patient will be admitted to the hospital and treated with IV antibiotics as CT imaging revealed evidence of perforated appendicitis without significant fluid collection or abscess formation. Patient also has evidence of severe enteritis and cystitis likely as a result of his ruptured appendicitis. Proceeding to the operating room carries risk of injury to surrounding structures as well as inability to identify and/or close the appendiceal stump. At this point, patient would likely benefit from IV antibiotics and interval appendectomy in approximately 6 to 8 weeks. All the above was explained in detail to the patient as well as his who joined in our conversation via telephone. Patient was in agreement with the aforemention ed plan and understands that should he clinically decompensate he may require sooner operative intervention. (2) Tobacco dependence: Status: Acute Assessment and plan: Counseled; Patient would like nicotine patch. (3) Chronic pain after traumatic injury: Status: Acute Assessment and plan: Patient will be receiving IV pain medication therefore we will likely hold home p.o. narcotic medication. History of Present Illness This is a 46-year-old male who presents emerged from complaining of right lower quadrant abdominal pain for approximately 36 hours associated with anorexia nausea and vomiting. Patient states that he woke up yesterday morning with severe lower quadrant abdominal pain and had approximately 3 episodes of vomiting. He attempted to drink water throughout the day but began with acute it down. Due to persistent pain he presented to the emergency room today for evaluation. Basic laboratory studies revealed a leukocytosis of 18,000 and hemoglobin of 16,000 which may be attributed to hemoconcentration. CT scan of t he abdomen pelvis was performed revealing evidence of what appears to be ruptured appendicitis without significant fluid collection or abscess formation. As a result of the above findings I was asked to see the patient in consultation for evaluation. Review of Systems Constitutional Constitutional: Reports anorexia and Denies fever(s) Cardiovascular Cardiovascular: Denies syncope, Denies leg edema and Denies dyspnea Respiratory Respiratory: Denies cough and Denies dyspnea Gastrointestinal Gastrointestinal: Reports abdominal pain, Reports loose stools, Reports nausea and Reports vomiting Musculoskeletal Musculoskeletal: Reports arthralgias (chronic left knee) Neurologic Neurologic: Denies syncope [facility] Medical History (Updated 06/05/21 @ 14:10 by Dana Jurado DO) Carpal tunnel syndrome Cervicalgia Cluster headache Diaphoresis Headache, post-traumatic Knee pain Left paraspinal back pain Lumbar radiculopathy Medication monitoring encounter Oral lesion Paresthesia of both hands Shoulder pain, bilateral Situational anxiety Skin lesion Smoker Subacromial bursitis Ulnar nerve disease Social History Smoking/Tobacco Use Status: Current every day Tobacco Type: cigarettes Smoking risk assessment performed?: Yes Alcohol Intake: never Drug use: Daily Substance use type: marijuana Seatbelt use: always Do you feel safe at home: Yes Do you feel safe in your relationship?: Yes Meds Allergies and Home Medications Allergies Allergy/AdvReac Type Severity Reaction Status Date / Time oxycodone [From Percocet] Allergy Intermediate Hives Unverified 06/05/21 10:52 gabapentin [From Neurontin] Allergy Mild Verified 06/05/21 10:52 Home Medications Medication Instructions Recorded Confirmed Type hydrocodone-acetaminophen [Vicodin] 1 ea PO PRN 05/25/14 06/05/21 History lidocaine [Lidoderm] 1 patch TP DAILY PRN #15 each 05/06/19 06/05/21 Rx methocarbamol 750 mg PO QID PRN #10 tab 05/06/19 06/05/21 Rx indomethacin 50 mg capsule 50 mg PO TID 01/25/20 06/05/21 History Exam Const General: cooperative, healthy appearing, comfortable and no acute distress Resp Effort & Inspection: normal respiratory effort and no audible wheezes Cardio Rate: regular rate Rhythm: regular rhythm GI Inspection: normal to inspection and non-distended Palpation: soft, no guarding and tender in the RLQ; not in the epigastrum and Rovsing's sign negative Percussion: normal to percussion Skin General skin exam: no rashes or lesions noted Results Labs Result diagrams: 06/05/21 11:15 06/05/21 11:15 Labs: Laboratory Results - last 24 hr 06/05/21 06/05/21 11:15 11:15 WBC 18.21 H RBC 5.28 Hgb 16.0 Hct 46.3 MCV 87.7 MCH 30.3 MCHC 34.6 RDW 12.4 Plt Count 255 MPV 9.1 Immature Gran % 0.3 Neutrophils % 77.5 Lymphocytes % 13.1 Monocytes % 8.4 Eosinophils % 0.2 Basophils % 0.5 Nucleated RBC % 0 Absolute Neutrophils 14.11 H Absolute Lymphocytes 2.39 Absolute Monocytes 1.53 H Absolute Eosinophils 0.04 Absolute Basophils 0.09 RBC Morphology Normal Sodium 136 Potassium 3.9 Chloride 101 Carbon Dioxide 24.7 Anion Gap 10.3 BUN 15 Creatinine 0.9 Estimated GFR/1.73 m2 >= 60.00 Glucose 114 H Calcium 9.1 Total Bilirubin 0.8 AST 10 L ALT 20 Alkaline Phosphatase 107 Total Protein 7.4 Albumin 3.8 Lipase 19 Last Vital Signs Temp 99.0 F 06/05/21 12:19 Pulse 92 H 06/05/21 12:19 Resp 14 06/05/21 10:48 BP 140/86 06/05/21 12:19 Pulse Ox 97 06/05/21 12:19
[2021-06-05] MEDS: PIPERACILLIN/TAZO 4.5 GM in Normal Saline 100 ML IVPB (12:40)
[2021-06-05 12:46] LABS: Bilirubin Negative (Negative); Blood Trace-intact (Negative); Clarity Clear (Clear); Glucose Negative (Negative); Ketones Negative (Negative); Leukocyte Esterase Negative (Negative); Nitrite Negative (Negative)
[2021-06-05 12:53] LABS: Bacteria Negative HPF (Negative); C & S Indicated? No; Casts Negative LPF (Negative); Crystals Negative HPF (Negative); Epithelial Cells Negative HPF (Negative); Mucus Negative (Negative); RBC 0-2 HPF (0-2); WBC Negative HPF (0-5)
[2021-06-05 14:40] LABS: Source Nasal/Nares
[2021-06-05] MEDS: Nicotine 21 MG/24 HR PATCH TD (15:07)
[2021-06-05] MEDS: Pantoprazole 40 MG VIAL IVP (15:09)
[2021-06-05] MEDS: Ketorolac 15 MG/ML VIAL IVP (15:10)
[2021-06-05] MEDS: Enoxaparin 40 MG/0.4 ML SYR SC (15:11)
[2021-06-05] MEDS: Lactated Ringers 1,000 ML 125 ML IV (15:12)
[2021-06-05 15:43] LABS: COVID-19 PCR Negative (Negative)
[2021-06-06] VITALS (7 sets, daily range): BP systolic 124–139; BP diastolic 75–89; PULSE 72–82; RESP 16–18; TEMP 36.4–36.8; O2SAT 95–98
[2021-06-06 06:45] LABS: Abs Immature Grans 0.04 10^3/uL (0.0-0.06); Absolute Basophil Count 0.08 10^3/uL (0.0-0.2); Absolute Eosinophil Count 0.16 10^3/uL (0.0-0.7); Absolute Lymphocyte Count 2.26 10^3/uL (1.2-3.4); Absolute Monocyte Count 1.01 10^3/uL (0.1-0.8); Basophils % 0.6; Eosinophils % 1.3; HGB 15.1 g/dL (13.5-17.5); Immature Grans % 0.3; Lymphocytes % 17.9; MCH 30.1 pg (27.0-33.0); MCHC 34.3 % (32.0-36.0); MCV 87.6 fL (80-95); MPV 9.2 fL (8.0-11.0); Neutrophils % 71.9; Nucleated RBC 0 %; Platelet Count 210 10^3/uL (130-400); RBC 5.02 10^6/uL (4.36-5.78); RDW 12.3 % (11.8-14.1); RDW-SD 39.8 fL; WBC 12.65 10^3/uL (4.4-10.8)
[2021-06-06 06:54] LABS: ALT 18 U/L (16-63); AST 12 U/L (15-37); Albumin 3.1 g/dL (3.4-5.0); Alkaline Phosphatase 99 U/L (46-116); Anion Gap 10.4 mmol/L (3-11); BUN 16 mg/dL (7-18); Bilirubin, Total 1.5 mg/dL (0.2-1.0); CO2 22.6 mmol/L (21.0-32.0); CREATININE 0.9 mg/dL (0.70-1.30); Calcium 8.5 mg/dL (8.5-10.1); Chloride 104 mmol/L (98-107); Glucose 75 mg/dL (74-106); Potassium 3.4 mmol/L (3.5-5.1); Sodium 137 mmol/L (136-145); Total Protein 6.3 g/dL (6.4-8.2)
[2021-06-06 07:58] LABS: INR 1.1 (0.9-1.1); Prothrombin Time 11.5 sec (9.3-11.0)
[2021-06-06] MEDS: Nicotine 21 MG/24 HR PATCH TD (08:30)
[2021-06-06] MEDS: POTASSIUM CHLORIDE/D5-0.45NACL 1,000 ML 125 MEQ IV ×2 (08:34→15:53)
--- NOTE | 2021-06-06 09:28 | W.PM.PROGNOT ---
Date of Service Date of service: 06/06/21 Time of Service: 09:29 Assessment and Plan Assessment and plan (1) Acute appendicitis with rupture: Status: Acute Assessment and plan: Continue IV hydration and Antibiotics NPO Pain is currently well controlled. Encouraged activity OOB and ambulation as tolerated. WBC down from yesterday. Will continue to observe (2) Tobacco dependence: Status: Acute Assessment and plan: Counseled; Patient would like nicotine patch. (3) Chronic pain after traumatic injury: Status: Acute Assessment and plan: Patient will be receiving IV pain medication therefore we will likely hold home p.o. narcotic medication. Subjective Subjective Interval history since last seen: Patient reports he is feeling about the same, all my pain is on the right side. Denies any fevers over night. Exam Const General: cooperative and comfortable Orientation: alert and oriented x3 Resp Effort & Inspection: normal respiratory effort, no audible wheezes and no cough GI Palpation: soft, guarding in the RLQ and tender in the RLQ Objective Last Vital Signs Temp 36.8 C 06/06/21 07:24 Pulse 79 06/06/21 07:24 Resp 18 06/06/21 07:24 BP 124/78 06/06/21 07:24 Pulse Ox 96 06/06/21 07:24 Laboratory Results - last 24 hr 06/05/21 06/05/21 06/05/21 11:15 11:15 12:35 WBC 18.21 H RBC 5.28 Hgb 16.0 Hct 46.3 MCV 87.7 MCH 30.3 MCHC 34.6 RDW 12.4 Plt Count 255 MPV 9.1 Immature Gran % 0.3 Neutrophils % 77.5 Lymphocytes % 13.1 Monocytes % 8.4 Eosinophils % 0.2 Basophils % 0.5 Nucleated RBC % 0 Absolute Neutrophils 14.11 H Absolute Lymphocytes 2.39 Absolute Monocytes 1.53 H Absolute Eosinophils 0.04 Absolute Basophils 0.09 RBC Morphology Normal PT INR Sodium 136 Potassium 3.9 Chloride 101 Carbon Dioxide 24.7 Anion Gap 10.3 BUN 15 Creatinine 0.9 Estimated GFR/1.73 m2 >= 60.00 Glucose 114 H Calcium 9.1 Total Bilirubin 0.8 AST 10 L ALT 20 Alkaline Phosphatase 107 Total Protein 7.4 Albumin 3.8 Lipase 19 Urine Color Yellow Urine Clarity Clear Urine pH 7.0 Ur Specific [place] 1.010 Urine Protein Negative Urine Ketones Negative Urine Blood Trace-intact H Urine Nitrite Negative Urine Bilirubin Negative Urine Urobilinogen 1.0 H Ur Leukocyte Esterase Negative Urine RBC 0-2 Urine WBC Negative Ur Epithelial Cells Negative Urine Crystals Negative Urine Bacteria Negative Urine Casts Negative Urine Mucus Negative Ur Culture Indicated? No Urine Glucose Negative COVID-19 Source SARS-CoV-2 (PCR) 06/05/21 06/06/21 06/06/21 14:05 06:30 06:30 WBC 12.65 H D RBC 5.02 Hgb 15.1 Hct 44.0 MCV 87.6 MCH 30.1 MCHC 34.3 RDW 12.3 Plt Count 210 MPV 9.2 Immature Gran % 0.3 Neutrophils % 71.9 Lymphocytes % 17.9 Monocytes % 8.0 Eosinophils % 1.3 Basophils % 0.6 Nucleated RBC % 0 Absolute Neutrophils 9.10 H Absolute Lymphocytes 2.26 Absolute Monocytes 1.01 H Absolute Eosinophils 0.16 Absolute Basophils 0.08 RBC Morphology PT INR Sodium 137 Potassium 3.4 L Chloride 104 Carbon Dioxide 22.6 Anion Gap 10.4 BUN 16 Creatinine 0.9 Estimated GFR/1.73 m2 >= 60.00 Glucose 75 Calcium 8.5 Total Bilirubin 1.5 H AST 12 L ALT 18 Alkaline Phosphatase 99 Total Protein 6.3 L Albumin 3.1 L Lipase Urine Color Urine Clarity Urine pH Ur Specific [place] Urine Protein Urine Ketones Urine Blood Urine Nitrite Urine Bilirubin Urine Urobilinogen Ur Leukocyte Esterase Urine RBC Urine WBC Ur Epithelial Cells Urine Crystals Urine Bacteria Urine Casts Urine Mucus Ur Culture Indicated? Urine Glucose COVID-19 Source Nasal/Nares SARS-CoV-2 (PCR) Negative 06/06/21 06:30 WBC RBC Hgb Hct MCV MCH MCHC RDW Plt Count MPV Immature Gran % Neutrophils % Lymphocytes % Monocytes % Eosinophils % Basophils % Nucleated RBC % Absolute Neutrophils Absolute Lymphocytes Absolute Monocytes Absolute Eosinophils Absolute Basophils RBC Morphology PT 11.5 H INR 1.1 Sodium Potassium Chloride Carbon Dioxide Anion Gap BUN Creatinine Estimated GFR/1.73 m2 Glucose Calcium Total Bilirubin AST ALT Alkaline Phosphatase Total Protein Albumin Lipase Urine Color Urine Clarity Urine pH Ur Specific [place] Urine Protein Urine Ketones Urine Blood Urine Nitrite Urine Bilirubin Urine Urobilinogen Ur Leukocyte Esterase Urine RBC Urine WBC Ur Epithelial Cells Urine Crystals Urine Bacteria Urine Casts Urine Mucus Ur Culture Indicated? Urine Glucose COVID-19 Source SARS-CoV-2 (PCR)
[2021-06-06] MEDS: Normal Saline 500 ML 30 ML IV (10:45)
[2021-06-06] MEDS: Normal Saline Flush 10 ML SYR IVP (14:27)
[2021-06-06] MEDS: Pantoprazole 40 MG VIAL IVP (14:28)
[2021-06-06] MEDS: Enoxaparin 40 MG/0.4 ML SYR SC (14:29)
--- NOTE | 2021-06-06 14:29 | PDOC.CMIN ---
- If Service Date Differs Date of service: 06/06/21 Time of Service: 14:29 Care Management Initial Assess REASON FOR HOSPITALIZATION:: Ruptured appendicitis PAST MEDICAL HISTORY/PAST SURGICAL HISTORY:: Medical History. Carpal tunnel syndrome. Cervicalgia. Cluster headache. Diaphoresis. Headache, post-traumatic. Knee pain. Left paraspinal back pain. Lumbar radiculopathy. Medication monitoring encounter. Oral lesion. Paresthesia of both hands. Shoulder pain, bilateral. Situational anxiety. Skin lesion. Smoker. Subacromial bursitis. Ulnar nerve disease PREVIOUS FUNCTIONAL STATUS/SOCIAL/FAMILY SUPPORTS:: Silvano lives in [place] with his girlfriend, who shares her time between [place] and [place]. They have two children, who are 16 and 14 year old boys. 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 He is independent at baseline. CURRENT FUNCTIONAL STATUS:: Silvano was lying in bed when CM met with him. He reported that he spoke with the MD, who stated that he will continue antibiotic therapy, and will likely have surgery in 4-6 weeks, unless his condition worsens. He was NPO when CM met with him. Per report, his diet will be advanced to clears later today. He stated that he was hoping to return home today, but is comfortable remaining, if necessary. He reported that he does not have any pain currently. CM will continue to follow. ADVANCE DIRECTIVES:: None on file, CM offered forms. Has patient been provided with info about the portal/API?: Yes Did the patient sign up for the portal?: Yes (active) CODE STATUS:: Full Code INSURANCE COVERAGE / FINANCIAL ISSUES:: [employer] CURRENT HOME/COMMUNITY SERVICES/EQUIPMENT:: No current services or equipment. PRIMARY CARE PHYSICIAN:: Nelli Allen POTENTIAL DISCHARGE NEEDS:: Follow up appointments PATIENT/FAMILY EDUCATION NEEDS:: Review discharge instructions regarding activity levels and medications, discussion of self care needs including ask me three. ANTICIPATED BARRIERS TO DISCHARGE:: None identified. TRANSPORTATION:: Via private vehicle by family. PLAN:: Anticipate Silvano will return home once medically cleared. He will transport via private vehicle when ready by family. He will follow up with his PCP and discharge plan of care. CM will continue to follow.
[2021-06-07] MEDS: Ketorolac 15 MG/ML VIAL IVP (00:45)
[2021-06-07] MEDS: POTASSIUM CHLORIDE/D5-0.45NACL 1,000 ML 125 MEQ IV ×2 (00:45→08:51)
[2021-06-07 03:43] VITALS: BP 128/81; PULSE 74; RESP 18; TEMP 36.5; O2SAT 95
[2021-06-07 07:11] LABS: Abs Immature Grans 0.02 10^3/uL (0.0-0.06); Absolute Basophil Count 0.04 10^3/uL (0.0-0.2); Absolute Eosinophil Count 0.27 10^3/uL (0.0-0.7); Absolute Lymphocyte Count 2.06 10^3/uL (1.2-3.4); Absolute Monocyte Count 0.84 10^3/uL (0.1-0.8); Absolute Neutrophil Count 5.97 10^3/uL (1.2-6.7); Basophils % 0.4; Eosinophils % 2.9; HGB 13.5 g/dL (13.5-17.5); Immature Grans % 0.2; Lymphocytes % 22.4; MCH 30.1 pg (27.0-33.0); MCHC 34.6 % (32.0-36.0); MCV 87.1 fL (80-95); MPV 9.4 fL (8.0-11.0); Monocytes % 9.1; Nucleated RBC 0 %; Platelet Count 209 10^3/uL (130-400); RBC 4.48 10^6/uL (4.36-5.78); RDW 12.4 % (11.8-14.1); RDW-SD 39.9 fL
[2021-06-07 07:17] LABS: Anion Gap 7.2 mmol/L (3-11); BUN 9 mg/dL (7-18); CO2 23.8 mmol/L (21.0-32.0); CREATININE 0.8 mg/dL (0.70-1.30); Calcium 8.2 mg/dL (8.5-10.1); Chloride 108 mmol/L (98-107); Glucose 106 mg/dL (74-106); Magnesium 1.7 mg/dL (1.8-2.4); Potassium 3.8 mmol/L (3.5-5.1); Sodium 139 mmol/L (136-145)
[2021-06-07 07:26] VITALS: BP 122/74; PULSE 66; RESP 17; TEMP 36.6; O2SAT 96
[2021-06-07] MEDS: Nicotine 21 MG/24 HR PATCH TD (08:01)
[2021-06-07] MEDS: Normal Saline Flush 10 ML SYR IVP ×5 (08:11→23:54)
--- NOTE | 2021-06-07 08:12 | W.PM.PROGNOT ---
Date of Service Date of service: 06/07/21 Time of Service: 08:13 Assessment and Plan Assessment and plan (1) Acute appendicitis with rupture: Status: Acute Assessment and plan: Continue IV hydration and Antibiotics Started on Clears, awaiting to see how this is tolerated Pain is currently well controlled. Encouraged activity OOB and ambulation as tolerated. WBC normal today. Will continue to observe (2) Tobacco dependence: Status: Acute Assessment and plan: Counseled; Patient would like nicotine patch. (3) Chronic pain after traumatic injury: Status: Acute Assessment and plan: Patient will be receiving IV pain medication therefore we will likely hold home p.o. narcotic medication. Subjective Subjective Interval history since last seen: Patient reports that he did have pain last night and required pain medication. He states this morning he is feeling much better. He did not have much of clears last night. Exam Const General: cooperative and comfortable Orientation: alert and oriented x3 Resp Effort & Inspection: normal respiratory effort, no audible wheezes and no cough GI Inspection: normal to inspection Palpation: soft, guarding in the RLQ and tender in the RLQ Objective Last Vital Signs Temp 36.6 C 06/07/21 07:26 Pulse 66 06/07/21 07:26 Resp 17 06/07/21 07:26 BP 122/74 06/07/21 07:26 Pulse Ox 96 06/07/21 07:26 Laboratory Results - last 24 hr 06/07/21 06/07/21 06:30 06:30 WBC 9.20 RBC 4.48 Hgb 13.5 Hct 39.0 L MCV 87.1 MCH 30.1 MCHC 34.6 RDW 12.4 Plt Count 209 MPV 9.4 Immature Gran % 0.2 Neutrophils % 65.0 Lymphocytes % 22.4 Monocytes % 9.1 Eosinophils % 2.9 Basophils % 0.4 Nucleated RBC % 0 Absolute Neutrophils 5.97 Absolute Lymphocytes 2.06 Absolute Monocytes 0.84 H Absolute Eosinophils 0.27 Absolute Basophils 0.04 Sodium 139 Potassium 3.8 Chloride 108 H Carbon Dioxide 23.8 Anion Gap 7.2 BUN 9 D Creatinine 0.8 Estimated GFR/1.73 m2 >= 60.00 Glucose 106 Calcium 8.2 L Magnesium 1.7 L
--- NOTE | 2021-06-07 09:27 | CHAPLAIN ---
I visited with Silvano yesterday. He said he believed the plan was that he would continue to receive antibiotics and then have surgery in a few weeks. His was in to visit him. He said he's comfortable but still has some pain. He was resting in bed, and thought he may be discharged. Silvano was pleasant and easily engaged in a conversation. I explained my role and offered support.
[2021-06-07 11:44] VITALS: BP 143/95; PULSE 70; RESP 18; TEMP 36.5; O2SAT 97
[2021-06-07] MEDS: Pantoprazole 40 MG VIAL IVP (14:44)
[2021-06-07] MEDS: Enoxaparin 40 MG/0.4 ML SYR SC (14:47)
--- NOTE | 2021-06-07 14:55 | CMPROGNOTE_ITS ---
- If Service Date Differs Date of service: 06/07/21 Time of Service: 14:55 Care Management Progress Note S/O: Silvano was sitting up in bed when CM met with him. He reported that he is feeling much better today. He was given clear liquids last night, and he hopes that his diet will be advanced soon, as he is hungry. He stated that he would like to return home as soon as possible, as his son is leaving town tomorrow, and he would like to see him before he goes. CM offered facetime/zoom, but he declined. Per MD, his diet will be advanced today, and if he tolerates it this afternoon/evening and tomorrow morning, he may be ready for discharge, as his WBC has normalized. He will have oral antibiotics, and close follow up. CM will continue to follow. A: Silvano is a 46 year old male admitted to [facility] on 06/05/21 with a ruptured appendix. P: Anticipate Silvano will return home once medically cleared. He will transport via private vehicle when ready by family. He will follow up with his PCP and discharge plan of care. CM will continue to follow.
[2021-06-07] MEDS: MAGNESIUM SULFATE 2 GM/50 ML BAG IVPB (15:01)
[2021-06-07 15:30] VITALS: BP 130/87; PULSE 72; RESP 17; TEMP 36.9; O2SAT 97
[2021-06-07 19:39] VITALS: BP 136/92; PULSE 64; RESP 16; TEMP 37.7; O2SAT 97
[2021-06-07 20:54] VITALS: BP 122/80; PULSE 60; RESP 17; TEMP 36.6; O2SAT 96
[2021-06-07] MEDS: POTASSIUM CHLORIDE/D5-0.45NACL 1,000 ML 80 MEQ IV (21:41)
[2021-06-08 00:53] VITALS: BP 124/78; PULSE 62; RESP 17; TEMP 36.6; O2SAT 97
[2021-06-08 03:40] VITALS: BP 129/84; PULSE 69; RESP 16; TEMP 36.6; O2SAT 95
[2021-06-08 07:24] LABS: Abs Immature Grans 0.03 10^3/uL (0.0-0.06); Absolute Basophil Count 0.05 10^3/uL (0.0-0.2); Absolute Eosinophil Count 0.36 10^3/uL (0.0-0.7); Absolute Lymphocyte Count 1.96 10^3/uL (1.2-3.4); Absolute Monocyte Count 0.59 10^3/uL (0.1-0.8); Absolute Neutrophil Count 4.97 10^3/uL (1.2-6.7); Basophils % 0.6; Eosinophils % 4.5; HCT 38.7 % (40.0-50.0); HGB 13.2 g/dL (13.5-17.5); Immature Grans % 0.4; Lymphocytes % 24.6; MCH 30.1 pg (27.0-33.0); MCHC 34.1 % (32.0-36.0); MCV 88.4 fL (80-95); MPV 9.5 fL (8.0-11.0); Monocytes % 7.4; Neutrophils % 62.5; Nucleated RBC 0 %; Platelet Count 230 10^3/uL (130-400); RBC 4.38 10^6/uL (4.36-5.78); RDW 12.1 % (11.8-14.1); RDW-SD 39.8 fL; WBC 7.96 10^3/uL (4.4-10.8)
[2021-06-08 07:31] LABS: Anion Gap 7.5 mmol/L (3-11); BUN 6 mg/dL (7-18); CO2 25.5 mmol/L (21.0-32.0); CREATININE 0.7 mg/dL (0.70-1.30); Calcium 8.4 mg/dL (8.5-10.1); Chloride 107 mmol/L (98-107); Glucose 100 mg/dL (74-106); Magnesium 1.9 mg/dL (1.8-2.4); Potassium 3.9 mmol/L (3.5-5.1); Sodium 140 mmol/L (136-145)
[2021-06-08] MEDS: Nicotine 21 MG/24 HR PATCH TD (07:38)
[2021-06-08] MEDS: Normal Saline Flush 10 ML SYR IVP ×2 (07:39→14:26)
[2021-06-08 07:40] VITALS: BP 146/83; PULSE 64; RESP 16; TEMP 36.5; O2SAT 96
--- NOTE | 2021-06-08 07:58 | W.PM.PROGNOT ---
Date of Service Date of service: 06/08/21 Time of Service: 07:59 Assessment and Plan Assessment and plan (1) Acute appendicitis with rupture: Status: Acute Assessment and plan: Continue IV antibiotics Changed diet order to ensure that he is given a soft regular diet. Pain is currently well controlled. Encouraged activity OOB and ambulation as tolerated. Today, would like to be sure he is tolerating a regular soft diet. If he continues to feel well, D/C home later this afternoon. He will need to follow up with the Surgical Office. (2) Tobacco dependence: Status: Acute Assessment and plan: Counseled; Patient would like nicotine patch. (3) Chronic pain after traumatic injury: Status: Acute Assessment and plan: Patient will be receiving IV pain medication therefore we will likely hold home p.o. narcotic medication. Subjective Subjective Interval history since last seen: Patient reports he continues to feel better. He has been tolerating clear liquids, he does not describe that this was advanced per the diet order. Pain has improved significantly. Exam Const General: cooperative, healthy appearing and comfortable Orientation: alert and oriented x3 Resp Effort & Inspection: normal respiratory effort, no audible wheezes and no cough GI Palpation: soft, no guarding and tender in the RLQ Auscultation: normal bowel sounds Objective Last Vital Signs Temp 36.6 C 06/08/21 03:40 Pulse 69 06/08/21 03:40 Resp 16 06/08/21 03:40 BP 129/84 06/08/21 03:40 Pulse Ox 95 06/08/21 03:40 Laboratory Results - last 24 hr 06/08/21 06/08/21 06:35 06:35 WBC 7.96 RBC 4.38 Hgb 13.2 L Hct 38.7 L MCV 88.4 MCH 30.1 MCHC 34.1 RDW 12.1 Plt Count 230 MPV 9.5 Immature Gran % 0.4 Neutrophils % 62.5 Lymphocytes % 24.6 Monocytes % 7.4 Eosinophils % 4.5 Basophils % 0.6 Nucleated RBC % 0 Absolute Neutrophils 4.97 Absolute Lymphocytes 1.96 Absolute Monocytes 0.59 Absolute Eosinophils 0.36 Absolute Basophils 0.05 Sodium 140 Potassium 3.9 Chloride 107 Carbon Dioxide 25.5 Anion Gap 7.5 BUN 6 L Creatinine 0.7 Estimated GFR/1.73 m2 >= 60.00 Glucose 100 Calcium 8.4 L Magnesium 1.9
--- NOTE | 2021-06-08 10:26 | PHA.REVIEW ---
Pharmacy Admission Review - Admission Clinical Review (Last Reviewed 06/05/21 @ 14:07 by Dana Jurado DO) Chronic pain after traumatic injury (Acute) Tobacco dependence (Acute) Acute appendicitis with rupture (Acute) oxycodone [From Percocet] Allergy (Intermediate, Unverified 06/05/21 10:52) Hives gabapentin [From Neurontin] Allergy (Mild, Verified 06/05/21 10:52) Resuscitation Status Full Code Height 5 ft 10.87 in Weight 69.853 kg - Renal Dosing Renal Dosing: BUN 6 mg/dL (7-18) L 06/08/21 06:35 Creatinine 0.7 mg/dL (0.70-1.30) 06/08/21 06:35 Medications needing adjustments: Reviewed - Anticoagulation Anticoagulation: Hgb 13.2 g/dL (13.5-17.5) L 06/08/21 06:35 Hct 38.7 % (40.0-50.0) L 06/08/21 06:35 Plt Count 230 10^3/uL (130-400) 06/08/21 06:35 INR 1.1 (0.9-1.1) 06/06/21 06:30 Creatinine 0.7 mg/dL (0.70-1.30) 06/08/21 06:35 DVT Prophylaxis: Reviewed Medications: Enoxaparin - Opiate Usage Evaluate Pain Scale/Pains Meds: Reviewed Scheduled Bowel Reg ordered if on Opiates?: No - Relevant Labs Sodium 140 mmol/L (136-145) 06/08/21 06:35 Potassium 3.9 mmol/L (3.5-5.1) 06/08/21 06:35 Chloride 107 mmol/L (98-107) 06/08/21 06:35 Magnesium 1.9 mg/dL (1.8-2.4) 06/08/21 06:35 Electrolytes, C-Reactive P, ESR: Reviewed - DM Control DM Control: Glucose 100 mg/dL (74-106) 06/08/21 06:35 Insulin Dosing: N/A - Heart Failure/TX EF%, VERÓNICA's, B-Blockers, Diuretics: N/A - BP Control BP Control: Blood Pressure 146/83 Blood Pressure 129/84 Blood Pressure 124/78 If elevated: Reviewed - Qtc Review If Elevated: N/A - IV to PO Switch IV Medications: Reviewed (slowly advancing diet) - Home Meds Home Med List reviewed: Reviewed - Current meds Current Medication Order Review: Reviewed (Today is day 4 of Zosyn, anticipate change to oral upon DC)
[2021-06-08 11:00] VITALS: BP 139/94; PULSE 74; RESP 16; TEMP 36.5; O2SAT 98
[2021-06-08] MEDS: Enoxaparin 40 MG/0.4 ML SYR SC (14:25)
[2021-06-08] MEDS: Pantoprazole 40 MG VIAL IVP (14:26)
[2021-06-08 15:28] VITALS: BP 147/94; PULSE 77; RESP 16; TEMP 37; O2SAT 96
--- NOTE | 2021-06-08 16:05 | W.PM.DS.N ---
Date of service: 06/08/21 Time of Service: 16:05 DS: Diagnosis Discharge Diagnosis (1) Acute appendicitis with rupture: Status: Acute (2) Tobacco dependence: Status: Acute (3) Chronic pain after traumatic injury: Status: Acute Discharge Plan Disposition Patient Disposition: HOME Condition: Good Discharge Details Reason For Visit: Ruptured Appendicitis Admit Date/Time: 06/05/21 13:26 Admit Provider: Dana Jurado Attending Provider: Dana Jurado Primary Care Provider: Nelli Allen V Hospital Course Hospital Course: This is a 46-year-old male who presented on 06/05, and was found to have perforated appendicitis. He has been treated with IV antibiotics, and conservative management. His diet was slowly advanced. He denies any pain, and is having bowel movements. He feels safe and comfortable to go home. Home Meds and New Rx's Prescriptions: New amoxicillin-pot clavulanate [Augmentin] 875-125 mg tablet 1 tab PO BID Qty: 20 RF: 0 No Action indomethacin 50 mg capsule 50 mg PO TID RF: 0 hydrocodone-acetaminophen [Vicodin] 1 EACH tablet 1 ea PO PRN RF: 0 methocarbamol 750 mg tablet 750 mg PO QID PRN (Reason: muscle spasticity) Qty: 10 RF: 0 lidocaine [Lidoderm] 5 % adhesive patch,medicated 1 patch TP DAILY PRN (Reason: pain) Qty: 15 RF: 0 Discharge Instructions Instructions: Appendicitis (GEN) Activity:: Activity as Tolerated Equipment/Supplies:: No Equipment Needed Diet:: As Tolerated Discharge Orders Discharge Orders: Discharge Order (Routine); Ordered 06/08/21 Ordered By: Magnus House Other Ambulatory Orders: CT abdomen & pelvis w (Routine) Timeframe: [id number] Location: None Selected Ordered By: Magnus House DS: Summary Time Spent with Patient providing and/or coordinating discharge services: Less than 30 minutes Status at Discharge Functional status at discharge: independent ambulation Overall status at discharge: patient is back to baseline Mental Status: mental status grossly normal Speech and Movement: speech and movement normal Mood: congruent mood Affect: normal affect Exam Psych Mental Status: mental status grossly normal Speech and Movement: speech and movement normal Mood: congruent mood Affect: normal affect DS: Data Vitals/I&O Vitals and I&O: Vital Signs Temperature 98.6 F 06/08/21 15:28 Temperature Source Tympanic 06/08/21 15:28 Pulse 77 06/08/21 15:28 Pulse Rhythm Regular 06/08/21 15:47 Respiratory Rate 16 06/08/21 15:28 Respiratory Effort Non-Labored 06/08/21 15:47 Respiratory Depth Normal 06/08/21 15:47 Respiratory Pattern Normal 06/08/21 15:47 Blood Pressure 147/94 H 06/08/21 15:28 Blood Pressure Mean 99 06/05/21 13:31 Blood Pressure Position Sitting 06/05/21 10:48 Pulse Oximetry 96 06/08/21 15:28 Oxygen Delivery Method Room Air 06/08/21 15:28 Oxygen Flow Rate 0 06/08/21 15:28 Pain Level 0 06/08/21 15:28 Comment 06/07/21 15:18 Intake & Output 06/07/21 06/08/21 06/08/21 23:59 11:59 23:59 Intake Total 3666.833 / 5056.833 1540.667 / 1999.667 460 / 1999.667 Balance 3666.833 / 4156.833 1540.667 / 1999.667 460 / 1999.667 Intake: IV 1086.833 / 2146.833 940.667 / 940.667 Oral 2580 / 2910 600 / 1060 460 / 1060 Other: Urine Color Yellow Urine Appearance Clear Clear Clear Urine Odor Normal Comment Per pt. report, void x1 in the toilet. Pt report voided in the toilet. Stool Size Small Stool Characteristics Liquid Voiding Methods Toilet Toilet Data Completed and Pending Labs on day of discharge: Labs from last 24 hours 06/08/21 06/08/21 06:35 06:35 WBC 7.96 RBC 4.38 Hgb 13.2 L Hct 38.7 L MCV 88.4 MCH 30.1 MCHC 34.1 RDW 12.1 Plt Count 230 MPV 9.5 Immature Gran % 0.4 Neutrophils % 62.5 Lymphocytes % 24.6 Monocytes % 7.4 Eosinophils % 4.5 Basophils % 0.6 Nucleated RBC % 0 Absolute Neutrophils 4.97 Absolute Lymphocytes 1.96 Absolute Monocytes 0.59 Absolute Eosinophils 0.36 Absolute Basophils 0.05 Sodium 140 Potassium 3.9 Chloride 107 Carbon Dioxide 25.5 Anion Gap 7.5 BUN 6 L Creatinine 0.7 Estimated GFR/1.73 m2 >= 60.00 Glucose 100 Calcium 8.4 L Magnesium 1.9 [facility] Medical History (Updated 06/05/21 @ 14:10 by Dana Jurado DO) Carpal tunnel syndrome Cervicalgia Cluster headache Diaphoresis Headache, post-traumatic Knee pain Left paraspinal back pain Lumbar radiculopathy Medication monitoring encounter Oral lesion Paresthesia of both hands Shoulder pain, bilateral Situational anxiety Skin lesion Smoker Subacromial bursitis Ulnar nerve disease Social History Smoking/Tobacco Use Status: Current every day Tobacco Type: cigarettes Smoking risk assessment performed?: Yes Alcohol Intake: never Drug use: Daily Substance use type: marijuana Seatbelt use: always Do you feel safe at home: Yes Do you feel safe in your relationship?: Yes
--- NOTE | 2021-06-08 17:08 | PDOC.CMDIS ---
- If Service Date Differs Date of service: 06/08/21 Time of Service: 17:08 LACE Index Scoring Tool - Questions: Length of Stay (in days): 3 Acuity (Admit via E.D.?): Yes E.D. Visits: 1 - Answers: Total Score: 7 Risk of Readmission: Low Risk Care Management Discharge Reason for Hospitalization: Ruptured appendicitis Discharge Plan: Silvano will return home today with no services. His girlfriend will drive him home via private vehicle. He will follow up with surgical services, his PCP and discharge plan of care. He reports feeling good, and is happy to be going home. Patient/Family Education Needs: Review discharge instructions regarding activity levels and medications, discussion of self care needs including ask me three.
== END 2021-06-08 16:42 | disposition home or self-care (01) | DRG 372 ==
LOC: ER 13:34 → MS 15:04
PROVIDERS: Surgery; Admitting Provider Surgery; Emergency Provider Student in an Organized Health Care Education/Training Program; PCP Family Medicine; Visit Provider Surgery
DX: K35.32 Acute appendicitis with perforation, localized peritonitis, and gangrene, without abscess (principal); N30.00 Acute cystitis without hematuria; F17.210 Nicotine dependence, cigarettes, uncomplicated; K52.89 Other specified noninfective gastroenteritis and colitis; G44.009 Cluster headache syndrome, unspecified, not intractable; M54.16 Radiculopathy, lumbar region; G89.29 Other chronic pain; Z20.822 Contact with and (suspected) exposure to COVID-19
CPT/HCPCS: 36415; 80048; 80053; 83690; 85027; 87635; 96361; 96365; 96375; 99285; J1650; 74177; 81003; 81015; 83735; 85025; 85610; J1885; J2543; J3490

== ENCOUNTER 2021-06-12 01:10 | Outpatient (CLI) | payer MEDICAID, SELFPAY ==
--- NOTE | 2021-06-12 | DI.CT_ITS ---
Exam(s) CT ABDOMEN PELVIS W EXAM: CT ABDOMEN PELVIS W CLINICAL HISTORY: F/U ACUTE APPENDICITIS WITH PERFORATION,K35.32. TECHNIQUE: Imaging Protocol: Axial computed tomography images with coronal and sagittal reformatted images were created and reviewed CONTRAST MATERIAL: Intravenous: Omnipaque 100cc Oral: Yes COMPARISON: CT CT ABDOMEN PELVIS W from 06/05/2021 FINDINGS: VISUALIZED LUNG BASES: Mild subpleural increased markings in the posterior aspect of the right lower lobe are noted. No associated pleural effusion.. ABDOMEN: There is no ascites. LIVER: There are no focal hepatic lesions evident. There is no evidence of intrahepatic abscess, giv en the right lower quadrant findings on the recent CT scan. GALLBLADDER/BILIARY: No obvious gallbladder pathology. CBD is not dilated. PANCREAS: No evidence of pancreatic mass nor dilatation of the pancreatic duct. SPLEEN: Spleen is not enlarged. No obvious intrasplenic lesions. Splenic and portal veins are paten t. ADRENALS: There are no significant adrenal masses. KIDNEYS:No cysts evident. No solid renal masses. No calculi nor hydronephrosis.. ABDOMINAL AORTA: Mildly atherosclerotic. LYMPH NODES:There is no retroperitineal nor paraaortic adenopathy. ABDOMINAL WALL: No evidence of significant anterior abdominal wall hernia. GI: Abundant fecal material now evident in th colon.. Correlation with any clinical signs constipati on recommended. PELVIS: GI: There has been interval surgery on the acute appendicitis evident on 06/05/2021. There is no abs cess. Oral contrast reveals small bowel diameter upper normal. There is no evidence of right lower quadrant abscess and no free fluid.Ileocecal valve appears unremarkable. There are no abnormally enl arged lymph nodes in the right lower quadrant nor elsewhere in the abdomen and pelvis. LYMPH NODES: There is no intrapelvic nor inguinal adenopathy. REPRODUCTIVE: Age-appropriate URINARY BLADDER: No calculi nor obvious masses evident OSSEOUS: No significant osseous lesions. Channel in the left femur is noted which is probably related to a prior intramedullary lonny and is unc hanged. IMPRESSION: 1. Compared to the CT scan of 06/05/2021 there has been interval appendectomy. There is no evidence of abscess or free fluid. 2. There is abundant fecal material in the colon now evident. Correlation any clinical signs of cons tipation is recommended. RADIATION DOSE DELIVERED: 558.16mGy.cm Total DLP DATA REPOSITORY: All CT scans at this facility are submitted to the National Radiology Data Registry (NRDR) Dose Index Registry (DIR) with the [employer] (ACR). RADIATION OPTIMIZATION: All CT scans at this facility use at least one of these dose optimization te chniques: automated exposure control; mA and/or kV adjustment per patient size (includes targeted exa ms where dose is matched to clinical indication); or iterative reconstruction.
[2021-06-12] MEDS: Omnipaque 350 MG/ML 50 ML BTL IJ (09:59)
[2021-06-12] MEDS: Breeza Beverage 473 ML BTL PO ×3 (10:01→10:03)
[2021-06-12] MEDS: Omnipaque 350 MG/ML 100 ML BTL IJ (11:17)
[2021-06-12] MEDS: Normal Saline - Diluent 50 ML VIAL IV (11:18)
== END 2021-06-12 01:30 ==
PROVIDERS: PCP Family Medicine; Visit Provider Surgery
DX: K35.32 Acute appendicitis with perforation, localized peritonitis, and gangrene, without abscess (principal)
CPT/HCPCS: 74177; J3490; Q9967

== ENCOUNTER 2021-07-17 03:10 | Outpatient (CLI) | payer MEDICAID, SELFPAY ==
[2021-07-17 13:43] LABS: Source Nasal/Nares
[2021-07-17 16:07] LABS: COVID-19 PCR Negative (Negative)
== END 2021-07-17 03:11 | disposition home or self-care (01) ==
LOC: LBO 03:11
PROVIDERS: PCP Family Medicine; Visit Provider Surgery
DX: Z20.822 Contact with and (suspected) exposure to COVID-19 (principal); Z01.818 Encounter for other preprocedural examination
CPT/HCPCS: 87635

== ENCOUNTER 2021-07-19 06:15 | Day surgery (SDC) | payer MEDICAID, SELFPAY ==
[2021-07-19] VITALS (9 sets, daily range): BP systolic 81–137; BP diastolic 50–96; PULSE 68–91; RESP 16–22; TEMP 35.9–36.2; O2SAT 90–100; BMI 21.2
--- NOTE | 2021-07-19 06:33 | ROE_ITS ---
Date of service: 07/19/21 Time of Service: 08:26 Operative Note Operative Note DATE OF PROCEDURE: 07/19/21 PRE-OP DIAGNOSIS: Ruptured Appendicitis POST-OP DIAGNOSIS: same PROCEDURE: Laparoscopic Appendectomy SURGEON: Krissy Luan NOTCHING PRESS OPERATOR: Yanni Brown ANESTHESIA TYPE: General LMA/ETT (ASA 2/ Haris Leon CRNA) Refer to Anesthesia Record ESTIMATED BLOOD LOSS: 25 PATHOLOGY: other (Appendix) COMPLICATIONS: None Patient was transported to: PACU Patient's condition: stable Indications: Mr. Juarez is a 46-year-old gentleman admitted to the hospital with acute appendicitis with rupture. He was treated with IV antibiotics and discharged home on p.o. antibiotics to have an interval appendectomy in about 6 weeks. He is here today to discuss that. We discussed laparoscopic appendectomy with possible open appendectomy depending on amount of scar tissue found. We also discussed postoperative care and weight limitations. The patient is on Vicodin daily for his chronic pain. I will prescribe more Vicodin on discharge to be able to take that every 6 hours as needed for 3 or 4 days. He should continue with the MiraLAX. We discussed risks and benefits. Risks, benefits and complications have been reviewed. Complications include but are not limited to bleeding, infection, injury to adjacent bowel, abscess for mation, staple line leak, inability to do the procedure laparoscopically and adverse reaction to the medications. Questions were entertained and answered to their satisfaction and they wished to proceed. No guarantees were given or implied. Proceed with laparoscopic appendectomy possible open Findings: Adhesions at the tip of the appendix Procedure Description: After informed consent was obtained the patient was taken to the operating room placed in the supine position, SCDs were applied as well as monitors. A timeout was done. The patient was then placed under general anesthesia and intubated without any difficulty. Next a Chester catheter was placed in a standard surgical fashion. At this point the abdomen was prepped and draped in a sterile surgical fashion with chlorhexidine. A second timeout was done and the patient's name, date of , operation to be performed, DVT prophylaxis, antibiotic given, and fire risk was assessed. Exparel was mixed with 0.25% Bupivocaine. The mixture was injected into the dermis just below the umbilicus. A small 5 mm incision was made with an 11 blade. The skin was grasped with penetrating towel clamps on either side of the incision and then using a Visiport a 5 mm port was placed under direct visualization into the abdomen. The abdomen was insufflated. Local anesthetic was then injected just above the pubic symphysis. A small 5 mm incision was made with an 11 blade and another 5 mm port was placed under direct visualization into the abdomen. The local anesthetic was then injected in the left lower quadrant area and a 12 mm incision was made with an 11 blade. A 12 mm port was then placed under direct visualization. The patient's bed was then turned to the left and head down allowing me to sweep of the small bowel out of the right lower quadrant. The cecum was gently grasped and the appendix was identified. The appendix tip was slightly dilated and there were a few adhesions from the tip to the peritoneal lining along the right gutter. No purulent fluid was noted. The appendix was grasped at the tip and pulled up slightly. Using the laparoscopic LigaSure the mesoappendix was slowly transected. Using a laparoscopic straight stapler the appendix was then transected at the junction with the cecum. The appendix was placed into an Endo Catch bag and removed through the 12 mm port site. The port was placed back into the abdomen and the staple line was identified. No bleeding was noted. The transected mesentery was identified and no bleeding was noted. The 2 5 mm ports were then removed under direct visualization and no bleeding was noted from the fascia. The insufflation was stopped and the 12 mm port was removed. The 12 mm port site fascia was closed with a 0 Vicryl [id number] suture. The skin was then closed with 4-0 Vicryl. The skin was cleaned and dried and skin affix was applied. The patient was woken up, extubated and taken back to recovery room in stable condition. There were no immediate complications. Sponge, instrument and needle counts were correct at the end of the case x2.
[2021-07-19] MEDS: Lactated Ringers 1,000 ML 80 ML IV (06:42)
[2021-07-19 06:47] LABS: Abs Immature Grans 0.02 10^3/uL (0.0-0.06); Absolute Basophil Count 0.08 10^3/uL (0.0-0.2); Absolute Eosinophil Count 0.43 10^3/uL (0.0-0.7); Absolute Lymphocyte Count 3.06 10^3/uL (1.2-3.4); Absolute Monocyte Count 0.46 10^3/uL (0.1-0.8); Absolute Neutrophil Count 4.18 10^3/uL (1.2-6.7); Eosinophils % 5.2; HCT 44.3 % (40.0-50.0); HGB 15.2 g/dL (13.5-17.5); Immature Grans % 0.2; Lymphocytes % 37.2; MCH 29.4 pg (27.0-33.0); MCHC 34.3 % (32.0-36.0); MCV 85.7 fL (80-95); MPV 8.9 fL (8.0-11.0); Monocytes % 5.6; Neutrophils % 50.8; Nucleated RBC 0 %; Platelet Count 344 10^3/uL (130-400); RBC 5.17 10^6/uL (4.36-5.78); RDW 12.1 % (11.8-14.1); RDW-SD 38.3 fL; WBC 8.23 10^3/uL (4.4-10.8)
--- NOTE | 2021-07-19 06:52 | W.ANESPRE ---
General Info Date of Service Date Performed: 07/19/21 Height: 5 ft 11 in Weight: 69.2 kg Body Mass Index (BMI): 21.2 Surgical Procedure: Operation Date: 07/19/21 07:40 Proposed Procedures Side Surgeon p Appendectomy Laparoscopic possibly open Krissy Luna MD Meds Allergies and Home Medications Allergies Allergy/AdvReac Type Severity Reaction Status Date / Time oxycodone [From Percocet] Allergy Intermediate Hives Unverified 07/19/21 06:23 gabapentin [From Neurontin] Allergy Mild Verified 07/19/21 06:23 Home Medication Medication Instructions Recorded indomethacin 50 mg capsule 50 mg PO TID 01/25/20 hydrocodone-acetaminophen 1 tab PO HS PRN 06/08/21 Current Visit Medications: Current Medications Generic Name Dose Route Start Last Admin Trade Name Freq PRN Reason Stop Dose Admin Hydrocodone Bitart/Acetaminophen 0 tab 07/19/21 06:37 Hydrocodone 5/Acetaminophen 325 Tab PO Q3H PRN PRN Pain Ringer's Solution 1,000 mls @ 80 mls/hr 07/19/21 06:00 07/19/21 06:42 IV 08/17/21 23:59 80 mls/hr INFUSION VEENA Administration Ampicillin Sodium/Sulbactam 100 mls @ 200 mls/hr 07/19/21 06:31 Sodium 3 gm/ Sodium Chloride IVPB 07/19/21 07:00 NOW ONE Ondansetron HCl 4 mg/ Sodium 52 mls @ 200 mls/hr 07/19/21 06:37 Chloride IVPB Q6H PRN PRN IV Miscellaneous Supplies 1 each 07/19/21 06:00 Iv Access IV 08/17/21 23:59 DIRECTED VEENA Sodium Chloride 0 ml 07/19/21 06:00 Normal Saline Flush 10 Ml Syr IV 08/17/21 23:59 PRN PRN Sodium Chloride 0 ml 07/19/21 06:00 Normal Saline 10 Ml Vial IJ 08/17/21 23:59 DIRECTED PRN Sterile Water 0 ml 07/19/21 06:00 Water,Injection,Sterile 10 Ml Vial IJ 08/17/21 23:59 DIRECTED PRN PFSH Active Problems Active Problems: Problem Status Onset Code 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 Tobacco dependence F17.200 Chronic pain after traumatic injury G89.21 Acute appendicitis with rupture K35.32 Unspecified tear of unspecified meniscus, current injury, left knee, subsequent encounter S83.207D Medical History Medical History Carpal tunnel syndrome Cervicalgia Chondromalacia of left knee SURGERY 07/04/18 Cluster headache Diaphoresis Headache, post-traumatic Knee pain Left paraspinal back pain Lumbar radiculopathy Medication monitoring encounter Oral lesion Paresthesia of both hands Shoulder pain, bilateral Situational anxiety Skin lesion Smoker Subacromial bursitis Tobacco dependence Ulnar nerve disease Surgical History Surgical History H/O left knee surgery Tobacco Smoking/Tobacco Use Status: Current every day Tobacco Type: cigarettes Alcohol Alcohol Intake: never Substance Use Substance use: Daily Substance use type: marijuana Vital Signs and Lab Results Vital Signs Most Recent Vital Signs in EMR: Most Recent Vital Signs Temp Pulse Resp BP Pulse Ox 36.1 C L 91 H 18 137/96 H 100 07/19/21 06:15 07/19/21 06:15 07/19/21 06:15 07/19/21 06:15 07/19/21 06:15 Lab Results Result Diagrams: 07/19/21 06:43 Blood Type / Crossmatch: No Data to Display Complete Blood Count: White Blood Count 8.23 10^3/uL (4.4-10.8) 07/19/21 06:43 07/19/21 Red Blood Count 5.17 10^6/uL (4.36-5.78) 07/19/21 06:43 07/19/21 Hemoglobin 15.2 g/dL (13.5-17.5) 07/19/21 06:43 07/19/21 Hematocrit 44.3 % (40.0-50.0) 07/19/21 06:43 07/19/21 Platelet Count 344 10^3/uL (130-400) 07/19/21 06:43 07/19/21 Complete Metabolic Panel: No Data to Display Liver Function Panel: No Data to Display Coagulation Panel: No Data to Display Cardiac Panel: No Data to Display Arterial Blood Gas: No Data to Display Venous Blood Gas: No Data to Display Pancreas Panel: No Data to Display Thyroid Panel: No Data to Display Infectious Disease: Coronavirus (COVID-19)(PCR) Negative (Negative) 07/17/21 08:34 07/17/21 Coronavirus 2019 Source Nasal/Nares 07/17/21 08:34 07/17/21 Blood Cultures: No Data to Display Toxicology Panel: No Data to Display Anesthesia Assessment and Plan Anesthesia History Personal History: No History of Anesthesia Complications Family History: No Family History of Anesthesia Complications Exercise Tolerance Exercise Tolerance: Metabolic Equivalents>4 Pertinent Negatives Pertinent Negatives: No Symptoms of GERD, No Major Cardiovascular Symptoms or Complaints and No Major Pulmonary Symptoms or Complaints Cardiac & Pulmonary Exam Cardiac Exam: Normal S1/S2 Heart Sounds Pulmonary Exam: Clear Bilateral Breath Sounds Airway Exam Known Difficult Airway: No Mallampati Class: 1 Mouth Opening: Normal (> 3cm) Thyromental Distance: Greater than 3 cm Neck Range of Motion: Full ROM Neck Circumference: Normal Teeth Condition: Edentulous ASA Classification ASA Score: ASA 2 Emergency Case?: No NPO Status NPO Status: NPO Clears >2 hours, Solids >8 hours Anesthesia Plan Resuscitation Status: Full Code Anesthesia Technique: General Anesthesia Airway Planned: Endotracheal Tube Monitors Used: Standard Monitors
[2021-07-19] MEDS: AMPICILLIN/SULBACTAM 3 GM in Normal Saline 100 ML IVPB (07:30)
[2021-07-19] MEDS: Bupivacaine LIPOSOME/PF 133 MG/10 ML VIAL IJ (08:04)
[2021-07-19] MEDS: Bupivacaine 0.25% Pres-Free 30 ML VIAL (08:05)
--- NOTE | 2021-07-19 08:08 | APP_PTH ---
PATIENT: Silvano Juarez LOC: [facility] U#:[id number] AGE/SX: 46/M ROOM: RE07/19/[address]: Krissy Luna MD : 1975 BED: DIS: 07/19/2021 SPEC #: [id number] RECD: 07/19/21 12:48 STATUS: CARLOS REQ #: [id number] ELIZA: 07/19/21 08:[address]: Krissy Luna DEPT: Surgical Specimen RECD BY: Rafia Weinberg ENTERED: 07/19/21 12:49 SP TYPE: Appendix OTHR DR: Nelli Allen V Tissues: 1 - APPENDIX NOT INCIDENTAL Procedures: GROSS AND MICRO LEVEL 3 Comments: [id number]
--- NOTE | 2021-07-19 08:33 | PDOC.DSDIS_ITS ---
Discharge Plan Disposition Patient Disposition: HOME Condition: Good Discharge Details Reason For Visit: Appendectomy Attending Provider: Krissy Luna Primary Care Provider: Nelli Allen V Home Meds and New Rx's Prescriptions: New hydrocodone-acetaminophen 5-325 mg tablet 1 tab PO Q6H PRN (Reason: pain) Qty: 14 RF: 0 Continued indomethacin 50 mg capsule 50 mg PO TID RF: 0 Discontinued hydrocodone-acetaminophen 5-325 mg tablet 1 tab PO HS PRNRF: 0 Discharge Instructions Additional Instructions: Activity at Home after surgery: 1. Make sure you walk outside at least 4 times per day 2. You should be able to climb a flight of stairs 3. No driving while in pain or taking pain medications 4. No strenuous activity or heavy lifting for 2 weeks (laparoscopic surgery) Diet, Nutrition, & wound healin. Avoid alcohol until after you are recovered from your surgery 2. Make sure to eat plenty of lean protein (meat, fish, eggs, cottage cheese, beans) 3. Eat a variety of fruits and vegetables. Eat plenty of high fiber foods to avoid constipation. 4. Drink plenty of liquids to stay hydrated and avoid constipation Pain Medications: 1. Ibuprofen 600 mg every 6 hours as needed. You may alternate between the 2 medications every 3 hours 2. If a narcotic has been prescribed take as directed only for breakthrough pain For Constipation: 1. Take Milk of Magnesia or MiraLax as needed for constipation Other: 1. You may shower daily. Do not scrub the incisions 2. Do not soak the incisions for 1 week 3. You may alternate ice and heat as needed for pain and swelling Wound Care: 1. Keep the incisions clean and dry Please call our office if you develop: 1. Fevers >101.5 2. Nausea or Vomiting 3. Worsening pain 4. Redness and thick discharge from the wounds If after hours please call the Hospital at and ask to speak to the on-call surgeon Referrals: Krissy Luna MD [ [facility] STAFF PHYSICIAN] - 08/01/21 9:30 am Activity:: as above Diet:: As Tolerated Discharge Orders Discharge Orders: Discharge Order (Routine); Ordered 07/19/21 Ordered By: Krissy Luna
--- NOTE | 2021-07-19 09:56 | W.ANESPOSTOP ---
Postoperative Evaluation Date, Time and Location Date Performed: 07/19/21 Time Performed: 09:56 Patient Location: PACU Vital Signs Most Recent Imported Vital Signs: Most Recent Vital Signs Temp Pulse Resp BP Pulse Ox 36.2 C L 72 20 127/93 H 94 07/19/21 09:15 07/19/21 09:15 07/19/21 09:15 07/19/21 09:15 07/19/21 09:15 Pain Score Most Recent Pain Score: Most Recent Pain Score Pain Level 0 07/19/21 09:15 Assessment Mental Status: Awake (Alert & Oriented to Patient Baseline) Airway and Respiratory Function: Patent airway with normal (patient baseline) respiratory exam Cardiovascular Function: Hemodynamically Stable Hydration Status: Adequately Hydrated Nausea & Vomiting: No Nausea or Vomiting Pain: Pt. Denies Any Pain Peripheral Nerve Block: Patient did not receive a nerve block
== END 2021-07-19 11:51 | disposition home or self-care (01) ==
PROVIDERS: PCP Family Medicine; Visit Provider Surgery
PROC: 0DTJ4ZZ Resection of Appendix, Percutaneous Endoscopic Approach (ICD-10-PCS; CPT 44970; principal; 2021-07-19 07:30)
DX: K35.32 Acute appendicitis with perforation, localized peritonitis, and gangrene, without abscess (principal); K38.2 Diverticulum of appendix
CPT/HCPCS: 44970; 36415; 85025; 88304; J0295; J1100; J1885; J2001; J2250; J2405; J2704

== ENCOUNTER 2021-08-24 17:40 | Observation (INO) | payer MEDICAID, SELFPAY ==
[2021-08-24] VITALS (7 sets, daily range): BP systolic 125–142; BP diastolic 84–96; PULSE 67–92; RESP 12–17; TEMP 35.7–37; O2SAT 96–100; BMI 21.9
[2021-08-24 12:24] LABS: Source Nasal/Nares
[2021-08-24] MEDS: Gabapentin 300 MG CAP PO (12:39)
[2021-08-24] MEDS: Acetaminophen 500 MG TAB 1000 MG PO (12:39)
[2021-08-24] MEDS: Lactated Ringers 1,000 ML 80 ML IV (12:49)
--- NOTE | 2021-08-24 12:56 | W.ANESPRE ---
General Info Date of Service Date Performed: 08/24/21 Height: 5 ft 11 in Weight: 71.2 kg Body Mass Index (BMI): 21.9 Surgical Procedure: Operation Date: 08/24/21 14:10 Proposed Procedures Side Surgeon p Herniorrhaphy Incisional Yadi Thomas, Meds Allergies and Home Medications Allergies Allergy/AdvReac Type Severity Reaction Status Date / Time oxycodone [From Percocet] Allergy Intermediate Hives Unverified 08/24/21 12:30 gabapentin [From Neurontin] Allergy Mild Verified 08/24/21 12:30 Home Medication Medication Instructions Recorded indomethacin 50 mg capsule 50 mg PO TID 01/25/20 hydrocodone-acetaminophen 1 tab PO Q6H PRN #14 tab 07/19/21 Current Visit Medications: Current Medications Generic Name Dose Route Start Last Admin Trade Name Freq PRN Reason Stop Dose Admin Acetaminophen 1,000 mg 08/24/21 06:00 08/24/21 12:39 Acetaminophen 500 Mg Tab PO 09/23/21 23:59 1,000 mg PREOP VEENA Administration Gabapentin 300 mg 08/24/21 06:00 08/24/21 12:39 Gabapentin 300 Mg Cap PO 09/23/21 23:59 300 mg PREOP VEENA Administration Ringer's Solution 1,000 mls @ 80 mls/hr 08/24/21 06:00 08/24/21 12:49 IV 09/23/21 23:59 80 mls/hr INFUSION VEENA Administration Piperacillin/Tazobactam/Dextrose 3.375 gm in 50 mls @ 100 mls/hr 08/24/21 06:00 Zosyn IVPB 08/24/21 23:59 PREOP VEENA IV Miscellaneous Supplies 1 each 08/24/21 06:00 Iv Access IV 09/23/21 23:59 DIRECTED VEENA Sodium Chloride 0 ml 08/24/21 06:00 Normal Saline Flush 10 Ml Syr IV 09/23/21 23:59 PRN PRN Sodium Chloride 0 ml 08/24/21 06:00 Normal Saline 10 Ml Vial IJ 09/23/21 23:59 DIRECTED PRN Sterile Water 0 ml 08/24/21 06:00 Water,Injection,Sterile 10 Ml Vial IJ 09/23/21 23:59 DIRECTED PRN PFSH Active Problems Active Problems: Problem Status Onset Code Urinary frequency R35.0 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 Tobacco dependence F17.200 Chronic pain after traumatic injury G89.21 Acute appendicitis with rupture K35.32 Unspecified tear of unspecified meniscus, current injury, left knee, subsequent encounter S83.207D Medical History Medical History Carpal tunnel syndrome Cervicalgia Chondromalacia of left knee SURGERY 07/04/18 Cluster headache Diaphoresis Headache, post-traumatic Knee pain Left paraspinal back pain Lumbar radiculopathy Medication monitoring encounter Oral lesion Paresthesia of both hands Shoulder pain, bilateral Situational anxiety Skin lesion Smoker Subacromial bursitis Tobacco dependence Ulnar nerve disease Surgical History Surgical History H/O left knee surgery S/P laparoscopic appendectomy (~07/19/21) Tobacco Smoking/Tobacco Use Status: Current every day Tobacco Type: cigarettes Alcohol Alcohol Intake: never Substance Use Substance use: Daily Substance use type: marijuana Details: last used 08.24.21 1130am Vital Signs and Lab Results Vital Signs Most Recent Vital Signs in EMR: Most Recent Vital Signs Temp Pulse Resp BP Pulse Ox 37.0 C 92 H 17 127/91 H 98 08/24/21 12:24 08/24/21 12:24 08/24/21 12:24 08/24/21 12:24 08/24/21 12:24 Lab Results Result Diagrams: 08/24/21 12:07 08/24/21 12:08 Blood Type / Crossmatch: No Data to Display Complete Blood Count: No Data to Display Complete Metabolic Panel: No Data to Display Liver Function Panel: No Data to Display Coagulation Panel: No Data to Display Cardiac Panel: No Data to Display Arterial Blood Gas: No Data to Display Venous Blood Gas: No Data to Display Pancreas Panel: No Data to Display Thyroid Panel: No Data to Display Infectious Disease: Coronavirus 2019 Source Nasal/Nares 08/24/21 11:24 08/24/21 Blood Cultures: No Data to Display Toxicology Panel: No Data to Display Anesthesia Assessment and Plan Anesthesia History Personal History: No History of Anesthesia Complications Family History: No Family History of Anesthesia Complications Exercise Tolerance Exercise Tolerance: Metabolic Equivalents>4 Pertinent Negatives Pertinent Negatives: No Symptoms of GERD, No Major Cardiovascular Symptoms or Complaints, No Major Pulmonary Symptoms or Complaints and No History of CVA/TIA Cardiac & Pulmonary Exam Cardiac Exam: Normal S1/S2 Heart Sounds Pulmonary Exam: Clear Bilateral Breath Sounds Airway Exam Known Difficult Airway: No Mallampati Class: 1 Mouth Opening: Normal (> 3cm) Thyromental Distance: Greater than 3 cm Neck Range of Motion: Full ROM Neck Circumference: Normal Teeth Condition: Edentulous ASA Classification ASA Score: ASA 2 Emergency Case?: No NPO Status NPO Status: NPO Clears >2 hours, Solids >8 hours Anesthesia Plan Resuscitation Status: Full Code Anesthesia Technique: General Anesthesia Airway Planned: LMA Monitors Used: Standard Monitors
[2021-08-24 14:06] LABS: Abs Immature Grans 0.02 10^3/uL (0.0-0.06); Absolute Eosinophil Count 0.28 10^3/uL (0.0-0.7); Absolute Lymphocyte Count 3.24 10^3/uL (1.2-3.4); Absolute Monocyte Count 0.55 10^3/uL (0.1-0.8); Absolute Neutrophil Count 4.78 10^3/uL (1.2-6.7); Basophils % 1.1; Eosinophils % 3.1; HCT 46.2 % (40.0-50.0); HGB 15.5 g/dL (13.5-17.5); Immature Grans % 0.2; Lymphocytes % 36.1; MCH 29.7 pg (27.0-33.0); MCHC 33.5 % (32.0-36.0); MCV 88.5 fL (80-95); MPV 8.9 fL (8.0-11.0); Monocytes % 6.1; Neutrophils % 53.4; Nucleated RBC 0 %; Platelet Count 298 10^3/uL (130-400); RBC 5.22 10^6/uL (4.36-5.78); RDW 12.9 % (11.8-14.1); RDW-SD 42.4 fL; WBC 8.97 10^3/uL (4.4-10.8)
[2021-08-24 14:19] LABS: ALT 25 U/L (16-63); AST 19 U/L (15-37); Albumin 3.8 g/dL (3.4-5.0); Alkaline Phosphatase 114 U/L (46-116); Anion Gap 6.1 mmol/L (3-11); BUN 15 mg/dL (7-18); Bilirubin, Total 0.2 mg/dL (0.2-1.0); C-Reactive Protein 0.47 mg/dL (0.0-0.3); CO2 26.9 mmol/L (21.0-32.0); CREATININE 0.8 mg/dL (0.70-1.30); Calcium 8.8 mg/dL (8.5-10.1); Chloride 105 mmol/L (98-107); Glucose 94 mg/dL (74-106); Sodium 138 mmol/L (136-145); Total Protein 7.1 g/dL (6.4-8.2)
--- NOTE | 2021-08-24 14:23 | W.PM.HP.N ---
Date of service: 08/24/21 Time of Service: 14:23 Assessment and Plan Assessment and plan (1) Tobacco dependence: Status: Acute (2) Chronic pain after traumatic injury: Status: Acute (3) Acute appendicitis with rupture: Status: Acute (4) Port-site hernia: Status: Acute Assessment and plan: OT for kayleigh villanuevair risk- see HPI admit post OP (5) Cannabis use, uncomplicated: Status: Acute History of Present Illness Narrative: Patient had laparoscopic appendectomy approximately a month ago. Where he was taking a higher yesterday and developed the pain. He went to urgent care today for to our office. He hernia through his left lateral umbilical port site; he needs to go to the OR for this.. This portion since is obtained explaining risks and benefits including but not limited to: Bleeding, infection, pneumonia, blood clots, chronic pain or numbness, possible bowel. Possible inability place mesh. Reaction to the mesh for reconstruction requiring removal. Other unforetold complications. Complications of anesthesia. Is a has a chronic cough. He uses THC products daily. He smokes 2 a day. He does not drink. He had no problems with anesthesia. Review of Systems All systems reviewed & are unremarkable except as noted in HPI and below [facility] Medical History Carpal tunnel syndrome Cervicalgia Chondromalacia of left knee SURGERY 07/04/18 Cluster headache Diaphoresis Headache, post-traumatic Knee pain Left paraspinal back pain Lumbar radiculopathy Medication monitoring encounter Oral lesion Paresthesia of both hands Shoulder pain, bilateral Situational anxiety Skin lesion Smoker Subacromial bursitis Tobacco dependence Ulnar nerve disease Surgical History H/O left knee surgery S/P laparoscopic appendectomy (~07/19/21) Social History Smoking/Tobacco Use Status: Current every day Tobacco Type: cigarettes Smoking risk assessment performed?: Yes Alcohol Intake: never Drug use: Daily Substance use type: marijuana Details: last used 08.24.21 1130am Seatbelt use: always Do you feel safe at home: Yes Do you feel safe in your relationship?: Yes Meds Allergies and Home Medications Allergies Allergy/AdvReac Type Severity Reaction Status Date / Time oxycodone [From Percocet] Allergy Intermediate Hives Unverified 08/24/21 12:30 gabapentin [From Neurontin] Allergy Mild Verified 08/24/21 12:30 Home Medications Medication Instructions Recorded Confirmed Type indomethacin 50 mg capsule 50 mg PO TID 01/25/20 08/24/21 History hydrocodone-acetaminophen 1 tab PO Q6H PRN #14 tab 07/19/21 08/24/21 Rx Exam Const General: cooperative, healthy appearing, comfortable, no acute distress, well developed and well groomed Nutritional Appearance: average body habitus and well nourished Orientation: alert, awake and oriented x3 HENMT Head: normal to inspection, normocephalic and atraumatic Ears: hearing grossly normal bilaterally and external ears normal General nose exam: external nose normal Face and sinus: normal facial exam and sinuses nontender Mouth: oral mucosae normal, lip normal, tongue normal and moist mucous membranes Teeth and gingiva: dentition normal Eyes General: appearance normal, both eyes and all related structures Conjunctivae: conjunctivae normal Sclera: sclerae normal Pupils: PERRL Neck Neck: normal visual inspection and full ROM Chest Chest: normal inspection of the chest Resp Effort & Inspection: normal respiratory effort, able to speak in complete sentences, cough Quality of cough: dry, no nasal flaring, not tachypneic and no use of accessory muscles Auscultation: clear to auscultation bilaterally, no rales, no rhonchi and wheezes scattered wheezes and lower bilaterally Cardio Jugular venous pressure: no JVD Rate: regular rate Rhythm: regular rhythm GI Inspection: normal to inspection, no edema and non-distended Palpation: soft, no masses, nontender and No ascites Auscultation: normal bowel sounds Other: Herniation at the LLQ port site. With the mass and acute peritonitis Skin General skin exam: no rashes or lesions noted Trauma: no lacerations or abrasions Neuro General: patient alert, patient oriented x3, oriented, gait normal, moves all extremities, no focal motor deficits and CN's II-XI intact bilaterally Cognition: normal cognition Speech: speech normal Gait: normal gait Motor: muscle tone normal throughout Extrem General: normal to inspection, full ROM and no clubbing, cyanosis or edema Psych Appearance: grossly normal and well kempt Mental Status: mental status grossly normal Speech and Movement: speech and movement normal Affect: normal affect Results Labs Result diagrams: 08/24/21 12:07 08/24/21 12:08 Labs: Laboratory Results - last 24 hr 08/24/21 08/24/21 11:24 13:31 COVID-19 Source Nasal/Nares Cancelled SARS-CoV-2 (PCR) Cancelled Last Vital Signs Temp 37.0 C 08/24/21 12:24 Pulse 92 H 08/24/21 12:24 Resp 17 08/24/21 12:24 BP 127/91 H 08/24/21 12:24 Pulse Ox 98 08/24/21 12:24
[2021-08-24 14:30] LABS: COVID-19 PCR Negative (Negative)
--- NOTE | 2021-08-24 14:30 | W.PM.OP ---
Date of service: 08/24/21 Time of Service: 14:31 Operative Note Operative Note DATE OF PROCEDURE: 08/24/21 PRE-OP DIAGNOSIS: incarcerated incisional hernia POST-OP DIAGNOSIS: same PROCEDURE: open repair. No mesh SURGEON: Yadi Thomas HAM STRIPPER: Yadi Lai ANESTHESIA TYPE: Local By Surgeon and General:No Airway Refer to Anesthesia Record ESTIMATED BLOOD LOSS: 5 PATHOLOGY: none sent COMPLICATIONS: None Patient was transported to: PACU Patient's condition: stable Procedure Description: Patient is a 46-year-old male who had a laparoscopic appendectomy approximately a month ago. She was doing well postop. Last night he went to change a tire and had severe pain in his left sided port site. He noticed a bulge. He laid down and ice. This did not resolve. He presented to urgent care this morning. He was referred to our office. Exam shows a obvious herniation at the left lower quadrant port site. Patient is being taken to the OR for surgery. Informed consent is obtained explaining the risks and benefits of the procedure including but not limited to: Bleeding, infection, pneumonia, blood clots, complications from anesthesia. He is a heavy smoker. He is a high risk of recurrent herniation and wound infection. He may or may not require bowel resection. Depending on the hernia we may or may not place mesh. Risks of mesh include infection, reaction requiring removal, chronic pain or chronic numbness. And other unforetold complications. The site was marked in preop. He is brought back to the operative room suite and placed in the supine.. General anesthesia is administered per the department of anesthesia. NG tube and Chester catheter placed. He did receive preop antibiotics. Timeout is performed. Patient is prepped and draped in usual sterile fashion using a ChloraPrep scrub solution. Once the patient is paralyzed and the muscles relax, the hernia does resolve. The area of the left port site is anesthetized with 10 cc of quarter percent Marcaine plain. The old incision site is then excised using a #15 blade. Electrocautery is used to provide hemostasis. The incision is opened up bluntly using a hemostat through the fascia and through the muscle down into the peritoneum. The defect is 3 mm in size. Once he was paralyzed, the contents slipped back into the abdomen. It was most likely fatty tissue. I did not feel it was worth the morbidity to make a large fascial incision. The defect is closed with 2 stitches of 2-0 Vicryl. Fascia is reapproximated with 4 stitches of 2-0 Vicryl. Wound is then copiously irrigated. Skin is approximated with sarah. Patient will be discharged home later this evening.
[2021-08-24] MEDS: Bupivacaine 0.25% Pres-Free 30 ML VIAL (16:17)
--- NOTE | 2021-08-24 17:03 | W.ANESPOSTOP ---
Postoperative Evaluation Date, Time and Location Date Performed: 08/24/21 Time Performed: 17:04 Patient Location: PACU Vital Signs Most Recent Imported Vital Signs: Most Recent Vital Signs Temp Pulse Resp BP Pulse Ox 36.5 C 70 14 127/84 98 08/24/21 16:55 08/24/21 16:55 08/24/21 16:55 08/24/21 16:55 08/24/21 16:55 Pain Score Most Recent Pain Score: Most Recent Pain Score Pain Level 1 08/24/21 12:24 Assessment Mental Status: Awake (Alert & Oriented to Patient Baseline) Airway and Respiratory Function: Patent airway with normal (patient baseline) respiratory exam Cardiovascular Function: Hemodynamically Stable Hydration Status: Adequately Hydrated Nausea & Vomiting: No Nausea or Vomiting Pain: Pain is tolerable per patient Peripheral Nerve Block: Patient did not receive a nerve block
--- NOTE | 2021-08-24 17:25 | W.PM.DS.N ---
Date of service: 08/24/21 Time of Service: 17:25 DS: Diagnosis Discharge Diagnosis (1) Tobacco dependence: Status: Acute (2) Chronic pain after traumatic injury: Status: Acute (3) Acute appendicitis with rupture: Status: Acute (4) Port-site hernia: Status: Acute (5) Cannabis use, uncomplicated: Status: Acute Discharge Plan Disposition Patient Disposition: HOME Condition: Good Discharge Details Reason For Visit: surgery for incarcerated hernia Attending Provider: Yadi Thomas Primary Care Provider: Nelli Allen V Home Meds and New Rx's Prescriptions: No Action indomethacin 50 mg capsule 50 mg PO TID RF: 0 hydrocodone-acetaminophen 5-325 mg tablet 1 tab PO Q6H PRN (Reason: pain) Qty: 14 RF: 0 Discharge Instructions Additional Instructions: Wound Care Instruction Pain Control Use ice! Ice keeps the swelling down and swelling is what causes pain. Never apply ice directly to the skin. Wrap it in a towel or cloth. Apply ice 20 minutes on and 20 minutes off for pain control. Use as needed. Take Tylenol 500 mg by mouth with food every 4 hours as needed for pain. Or ibuprofen 600 mg by mouth with food every 6 hours as needed for pain. Do not take Tylenol if you have a history of heavy drinking, hepatitis C or liver problems. Do not take ibuprofen if you have a history of stomach ulcers/problems, bleeding problem or kidney issues. -Use ultram for pain>7. ?[facility] Home care ? Always wash your hands before touching your incision. ? Keep the incision clean, dry, and out of water, keep the incision out of water. ? Do not to pick at the scabs. Scabs help protect the wound. ? You can take a shower in 24 hours and wash the incision with soap and water. Pat dry/don?t scrub. It?s OK to wash around the incision. But don?t spray water directly on it. ? Pat stitches dry if they get wet. Don't rub. ? Check the incision site daily for pain, redness, drainage, swelling, or separation of the incision edges. ? Make sure any clothing that touches the incision is loose-fitting. This will prevent rubbing. If the incision is on the head, keep your child from wearing caps or other head coverings. These may rub against the incision. As your incision heals, the skin may appear pink or red. It may also feel slightly bumpy or raised. This is called a healing ridge. Over time, the color should fade and the raised skin will become less noticeable. When to seek medical care Call your healthcare provider right away if you have any of these: ? More pain, redness, swelling, bleeding, or foul-smelling discharge around the incision area ? Fever of 101?F (38.3?C) or higher, or as directed by your child's healthcare provider ? Shaking chills ? Vomiting or nausea that doesn?t go away ? Numbness, coldness, or tingling around the incision area, or changes in skin color ? Opening of the sutures or wound -Stitches or sarah that come apart or fall out or surgical tape falls off before 7 days, or as directed by your healthcare provider [facility]: [phone] -No driving x1 week or of you are taking pain medications. -If you have sarah or sutures in place, they will be removed at your clinic appointment in 7-10 days. -Follow-up with Dr. Thomas in 1 week. If you are discharged after normal business hours, you will need to call and schedule an appt. [phone] -regular diet -no straining to move bowels -pain meds are very constipating: if you do not move your bowels daily take a dose of OTC milk of magnesia -It is ok to shower. No bathe, soaking, swimming or hot tubs -Keep wound clean and dry. Wash incision with soap and water daily. Pat dry, don't rub. - You may find that your appetite is smaller. Eat 3-6 small meals throughout the day. It is important to drink lots of water after surgery, 6-10 glasses a day. -If you were given an incentive spirometry (breathing drapery operator?), continue to do this 10x/hour while awake. -We do want you up walking, at least 5-6 times per day. This is very important to prevent pneumonia and blood clots. You can climb stairs, take them slowly. -No lifting over 5 pounds. This is very important to avoid developing a hernia in your incision. -You may find that you are very tired after surgery- this is normal. -please do not smoke for a minimum of 72 hours after surgery. Activity:: see above Remove Dressings/Wound Care:: 24 hours Shower/Bathe:: 24 hours Diet:: As Tolerated Discharge Orders Discharge Orders: Discharge Order (Routine); Ordered 08/24/21 Ordered By: Yadi Thomas DS: Summary Time Spent with Patient providing and/or coordinating discharge services: Less than 30 minutes Status at Discharge Functional status at discharge: independent ambulation Overall status at discharge: patient is progressing back to baseline Mental Status: mental status grossly normal Speech and Movement: speech and movement normal Mood: congruent mood Affect: normal affect Exam Psych Mental Status: mental status grossly normal Speech and Movement: speech and movement normal Mood: congruent mood Affect: normal affect DS: Data Vitals/I&O Vitals and I&O: Vital Signs Temperature 36.5 C 08/24/21 17:05 Pulse 75 08/24/21 17:05 Pulse Rhythm Regular 08/24/21 12:24 Respiratory Rate 14 08/24/21 17:05 Respiratory Depth Deep 08/24/21 12:24 Blood Pressure 136/96 H 08/24/21 17:05 Pulse Oximetry 97 08/24/21 17:05 Respiratory End-tidal CO2 35 08/24/21 17:05 Oxygen Delivery Method Nasal Cannula 08/24/21 17:05 Oxygen Flow Rate 2 08/24/21 17:00 Pain Level 5 08/24/21 12:24 Intake & Output 08/23/21 08/24/21 08/24/21 23:59 11:59 23:59 Intake Total 550 / 550 Balance 550 / 550 Weight 71.2 kg Intake: IV 550 / 550 Other: Urine Color Yellow Urine Appearance Clear Emesis Description None Data Completed and Pending Labs on day of discharge: Labs from last 24 hours 08/24/21 08/24/21 08/24/21 13:31 13:31 12:08 WBC RBC Hgb Hct MCV MCH MCHC RDW Plt Count MPV Immature Gran % Neutrophils % Lymphocytes % Monocytes % Eosinophils % Basophils % Absolute Neutrophils Absolute Lymphocytes Absolute Monocytes Absolute Eosinophils Absolute Basophils Sodium Pending Potassium Pending Chloride Pending Carbon Dioxide Pending Anion Gap Pending BUN Pending Creatinine Pending Estimated GFR/1.73 m2 Pending Glucose Pending Calcium Pending C-Reactive Protein Pending COVID-19 Source Cancelled Cancelled SARS-CoV-2 (PCR) Cancelled Cancelled 08/24/21 08/24/21 12:07 11:24 WBC Pending RBC Pending Hgb Pending Hct Pending MCV Pending MCH Pending MCHC Pending RDW Pending Plt Count Pending MPV Pending Immature Gran % Pending Neutrophils % Pending Lymphocytes % Pending Monocytes % Pending Eosinophils % Pending Basophils % Pending Absolute Neutrophils Pending Absolute Lymphocytes Pending Absolute Monocytes Pending Absolute Eosinophils Pending Absolute Basophils Pending Sodium Potassium Chloride Carbon Dioxide Anion Gap BUN Creatinine Estimated GFR/1.73 m2 Glucose Calcium C-Reactive Protein COVID-19 Source Nasal/Nares SARS-CoV-2 (PCR) Negative [facility] Medical History Carpal tunnel syndrome Cervicalgia Chondromalacia of left knee SURGERY 07/04/18 Cluster headache Diaphoresis Headache, post-traumatic Knee pain Left paraspinal back pain Lumbar radiculopathy Medication monitoring encounter Oral lesion Paresthesia of both hands Shoulder pain, bilateral Situational anxiety Skin lesion Smoker Subacromial bursitis Tobacco dependence Ulnar nerve disease Surgical History H/O left knee surgery S/P laparoscopic appendectomy (~07/19/21) Social History Smoking/Tobacco Use Status: Current every day Tobacco Type: cigarettes Smoking risk assessment performed?: Yes Alcohol Intake: never Drug use: Daily Substance use type: marijuana Details: last used 08.24.21 1130am Seatbelt use: always Do you feel safe at home: Yes Do you feel safe in your relationship?: Yes
--- NOTE | 2021-08-24 17:31 | DSE_ITS ---
DS: Diagnosis Discharge Diagnosis (1) Tobacco dependence: Status: Acute (2) Chronic pain after traumatic injury: Status: Acute (3) Acute appendicitis with rupture: Status: Acute (4) Port-site hernia: Status: Acute (5) Cannabis use, uncomplicated: Status: Acute Discharge Plan Disposition Patient Disposition: HOME Condition: Good Discharge Details Reason For Visit: surgery for incarcerated hernia Attending Provider: Yadi Thomas Primary Care Provider: Nelli Allen V Home Meds and New Rx's Prescriptions: New tramadol [Ultram] 50 mg tablet 50 mg PO Q6H PRN (Reason: pain (scale score 7-10)) Qty: 10 RF: 0 Discontinued hydrocodone-acetaminophen 5-325 mg tablet 1 tab PO Q6H PRN (Reason: pain) Qty: 14 RF: 0 No Action indomethacin 50 mg capsule 50 mg PO TID RF: 0 Discharge Instructions Additional Instructions: Wound Care Instruction Pain Control Use ice! Ice keeps the swelling down and swelling is what causes pain. Never apply ice directly to the skin. Wrap it in a towel or cloth. Apply ice 20 minutes on and 20 minutes off for pain control. Use as needed. Take Tylenol 500 mg by mouth with food every 4 hours as needed for pain. Or ibuprofen 600 mg by mouth with food every 6 hours as needed for pain. Do not take Tylenol if you have a history of heavy drinking, hepatitis C or liver problems. Do not take ibuprofen if you have a history of stomach ulcers/problems, bleeding problem or kidney issues. -Use ultram for pain>7. ?[facility] ? Always wash your hands before touching your incision. ? Keep the incision clean, dry, and out of water, keep the incision out of water. ? Do not to pick at the scabs. Scabs help protect the wound. ? You can take a shower in 24 hours and wash the incision with soap and water. Pat dry/don?t scrub. It?s OK to wash around the incision. But don?t spray water directly on it. ? Pat stitches dry if they get wet. Don't rub. ? Check the incision site daily for pain, redness, drainage, swelling, or separation of the incision edges. ? Make sure any clothing that touches the incision is loose-fitting. This will prevent rubbing. If the incision is on the head, keep your child from wearing caps or other head coverings. These may rub against the incision. As your incision heals, the skin may appear pink or red. It may also feel slightly bumpy or raised. This is called a healing ridge. Over time, the color should fade and the raised skin will become less noticeable. When to seek medical care Call your healthcare provider right away if you have any of these: ? More pain, redness, swelling, bleeding, or foul-smelling discharge around the incision area ? Fever of 101?F (38.3?C) or higher, or as directed by your child's healthcare provider ? Shaking chills ? Vomiting or nausea that doesn?t go away ? Numbness, coldness, or tingling around the incision area, or changes in skin color ? Opening of the sutures or wound -Stitches or sarah that come apart or fall out or surgical tape falls off before 7 days, or as directed by your healthcare provider [facility]: [phone] -No driving x1 week or of you are taking pain medications. -If you have sarah or sutures in place, they will be removed at your clinic appointment in 7-10 days. -Follow-up with Dr. Thomas in 1 week. If you are discharged after normal business hours, you will need to call and schedule an appt. [phone] -regular diet -no straining to move bowels -pain meds are very constipating: if you do not move your bowels daily take a dose of OTC milk of magnesia -It is ok to shower. No bathe, soaking, swimming or hot tubs -Keep wound clean and dry. Wash incision with soap and water daily. Pat dry, don't rub. - You may find that your appetite is smaller. Eat 3-6 small meals throughout the day. It is important to drink lots of water after surgery, 6-10 glasses a day. -If you were given an incentive spirometry (breathing fermentation engineer?), continue to do this 10x/hour while awake. -We do want you up walking, at least 5-6 times per day. This is very important to prevent pneumonia and blood clots. You can climb stairs, take them slowly. -No lifting over 5 pounds. This is very important to avoid developing a hernia in your incision. -You may find that you are very tired after surgery- this is normal. -please do not smoke for a minimum of 72 hours after surgery. Activity:: see above Remove Dressings/Wound Care:: 24 hours Shower/Bathe:: 24 hours Diet:: As Tolerated Discharge Orders Discharge Orders: Discharge Order (Routine); Ordered 08/24/21 Ordered By: Yadi Thomas DS: Summary Time Spent with Patient providing and/or coordinating discharge services: Less than 30 minutes Status at Discharge Functional status at discharge: independent ambulation Overall status at discharge: patient is back to baseline Mental Status: mental status grossly normal Speech and Movement: speech and movement normal Mood: congruent mood Affect: normal affect Exam Psych Mental Status: mental status grossly normal Speech and Movement: speech and movement normal Mood: congruent mood Affect: normal affect DS: Data Vitals/I&O Vitals and I&O: Vital Signs Temperature 36.5 C 08/24/21 17:05 Pulse 75 08/24/21 17:05 Pulse Rhythm Regular 08/24/21 12:24 Respiratory Rate 14 08/24/21 17:05 Respiratory Depth Deep 08/24/21 12:24 Blood Pressure 136/96 H 08/24/21 17:05 Pulse Oximetry 97 08/24/21 17:05 Respiratory End-tidal CO2 35 08/24/21 17:05 Oxygen Delivery Method Nasal Cannula 08/24/21 17:05 Oxygen Flow Rate 2 08/24/21 17:00 Pain Level 5 08/24/21 12:24 Intake & Output 08/23/21 08/24/21 08/24/21 23:59 11:59 23:59 Intake Total 550 / 550 Balance 550 / 550 Weight 71.2 kg Intake: IV 550 / 550 Other: Urine Color Yellow Urine Appearance Clear Emesis Description None Data Completed and Pending Labs on day of discharge: Labs from last 24 hours 08/24/21 08/24/21 08/24/21 13:31 13:31 12:08 WBC RBC Hgb Hct MCV MCH MCHC RDW Plt Count MPV Immature Gran % Neutrophils % Lymphocytes % Monocytes % Eosinophils % Basophils % Absolute Neutrophils Absolute Lymphocytes Absolute Monocytes Absolute Eosinophils Absolute Basophils Sodium Pending Potassium Pending Chloride Pending Carbon Dioxide Pending Anion Gap Pending BUN Pending Creatinine Pending Estimated GFR/1.73 m2 Pending Glucose Pending Calcium Pending C-Reactive Protein Pending COVID-19 Source Cancelled Cancelled SARS-CoV-2 (PCR) Cancelled Cancelled 08/24/21 08/24/21 12:07 11:24 WBC Pending RBC Pending Hgb Pending Hct Pending MCV Pending MCH Pending MCHC Pending RDW Pending Plt Count Pending MPV Pending Immature Gran % Pending Neutrophils % Pending Lymphocytes % Pending Monocytes % Pending Eosinophils % Pending Basophils % Pending Absolute Neutrophils Pending Absolute Lymphocytes Pending Absolute Monocytes Pending Absolute Eosinophils Pending Absolute Basophils Pending Sodium Potassium Chloride Carbon Dioxide Anion Gap BUN Creatinine Estimated GFR/1.73 m2 Glucose Calcium C-Reactive Protein COVID-19 Source Nasal/Nares SARS-CoV-2 (PCR) Negative [facility] Medical History Carpal tunnel syndrome Cervicalgia Chondromalacia of left knee SURGERY 07/04/18 Cluster headache Diaphoresis Headache, post-traumatic Knee pain Left paraspinal back pain Lumbar radiculopathy Medication monitoring encounter Oral lesion Paresthesia of both hands Shoulder pain, bilateral Situational anxiety Skin lesion Smoker Subacromial bursitis Tobacco dependence Ulnar nerve disease Surgical History H/O left knee surgery S/P laparoscopic appendectomy (~07/19/21) Social History Smoking/Tobacco Use Status: Current every day Tobacco Type: cigarettes Smoking risk assessment performed?: Yes Alcohol Intake: never Drug use: Daily Substance use type: marijuana Details: last used 08.24.21 1130am Seatbelt use: always Do you feel safe at home: Yes Do you feel safe in your relationship?: Yes
== END 2021-08-24 22:28 | disposition home or self-care (01) ==
LOC: MS 17:43
PROVIDERS: Admitting Provider Surgery; PCP Family Medicine; Visit Provider Surgery
PROC: (CPT 49561; principal; 2021-08-24 14:00)
DX: K43.0 Incisional hernia with obstruction, without gangrene (principal); F12.90 Cannabis use, unspecified, uncomplicated; F17.210 Nicotine dependence, cigarettes, uncomplicated
CPT/HCPCS: 49561; 80048; 80053; 87635; 85025; 86140; G0378; J1100; J1885; J2250; J2405; J2704

== ENCOUNTER 2022-01-18 18:28 | Outpatient (REF) | payer MEDICAID, SELFPAY ==
[2022-01-18 19:21] LABS: HCT 47.8 % (40.0-50.0); HGB 16.1 g/dL (13.5-17.5); MCHC 33.7 % (32.0-36.0); MPV 9.6 fL (8.0-11.0); Platelet Count 267 10^3/uL (130-400); RBC 5.37 10^6/uL (4.36-5.78); RDW 12.5 % (11.8-14.1); RDW-SD 41.4 fL; WBC 7.67 10^3/uL (4.4-10.8)
[2022-01-18 19:24] LABS: ESR 7 mm/hr (0-15)
[2022-01-18 19:57] LABS: C-Reactive Protein 0.21 mg/dL (0.0-0.3); TSH (W/Ref FT4) 0.92 uIU/mL (0.36-3.74)
[2022-01-22 11:05] LABS: IgA 135 mg/dL (85-499); Interpretation (See Note); Tissue Transglutaminase IgA <1.2 U/mL (<4.0)
== END 2022-01-18 18:29 | disposition home or self-care (01) ==
LOC: NCHCN 18:28
PROVIDERS: PCP Family Medicine; Visit Provider Family Medicine
DX: R19.4 Change in bowel habit (principal)
CPT/HCPCS: 82784; 83516; 85027; 85652; 84443; 86140

== ENCOUNTER 2022-06-07 10:19 | Outpatient (REF) | payer MEDICAID, SELFPAY ==
[2022-06-12 12:19] LABS: Codeine Negative ng/mL (Cutoff: 25); Dihydrocodeine Negative ng/mL (Cutoff: 25); Hydrocodone 78 ng/mL (Cutoff: 25); Hydromorphone Negative ng/mL (Cutoff: 25); Morphine Negative ng/mL (Cutoff: 25); Naloxone Negative ng/mL (Cutoff: 25); Norhydrocodone 89 ng/mL (Cutoff: 25); Noroxycodone Negative ng/mL (Cutoff: 25); Noroxymorphone Negative ng/mL (Cutoff: 25); Opiates Interpretation Positive.
== END 2022-06-07 10:20 | disposition home or self-care (01) ==
LOC: NCHCN 10:19
PROVIDERS: PCP Family Medicine; Visit Provider Family Medicine
DX: G89.21 Chronic pain due to trauma (principal); F11.20 Opioid dependence, uncomplicated
CPT/HCPCS: 80361; 80362; 80365

== ENCOUNTER 2023-12-19 10:33 | Outpatient (REF) | payer MEDICAID, SELFPAY ==
[2023-12-19 16:38] LABS: Calculated LDL 119 mg/dL (<100); Cholesterol 182 mg/dL (<200); HDL Cholesterol 47 mg/dL (40-60); Triglyceride 82 mg/dL (<150)
== END 2023-12-19 10:34 | disposition home or self-care (01) ==
LOC: NCHCN 10:33
PROVIDERS: PCP Family Medicine; Visit Provider Family Medicine
DX: Z00.00 Encounter for general adult medical examination without abnormal findings (principal)
CPT/HCPCS: 80061

== ENCOUNTER 2024-03-26 14:07 | Outpatient (REF) | payer MEDICAID, SELFPAY ==
--- NOTE | 2024-03-26 13:20 | ORMUBX_PTH ---
PATIENT: Silvano Juarez LOC: N U#:[id number] AGE/SX: 49/M ROOM: RE03/26/[address]: Ihsan Lorenzo MD : 1975 BED: DIS: 03/26/2024 SPEC #: [id number] RECD: 03/26/24 18:41 STATUS: CARLOS REQ #: [id number] ELIZA: 03/26/24 13:[address]: Ihsan Lorenzo DEPT: Surgical Specimen RECD BY: Rafia Weinberg ENTERED: 03/26/24 18:42 SP TYPE: ORMUBX OTHR DR: Nelli Allen V Tissues: 1 - MUCOSA, NOS Procedures: GROSS AND MICRO LEVEL 4 Comments: [id number]
== END 2024-03-26 14:08 | disposition home or self-care (01) ==
LOC: LBN 14:07
PROVIDERS: PCP Family Medicine; Visit Provider Otolaryngology
DX: K13.29 Other disturbances of oral epithelium, including tongue (principal)
CPT/HCPCS: 88305